=== PATIENT | female | born 2000 | race Caucasian/White ===

== ENCOUNTER 2020-01-18 11:00 | Emergency (ER) | payer OTHER ==
[~2020-01-18] VITALS: Ht 160 cm; Wt 75.9 kg
[2020-01-18 11:44] LABS: BASO % 0.4 % (0.0-1.0); EOS # 0.1 10^3/uL (0.0-0.5); HEMOGLOBIN 12.8 g/dl (12.0-15.5); LYMPH # 1.3 10^3/uL (1.5-5.0); MEAN CORPUSCULAR HEMOGLOBIN 24.5 pg (27.0-33.0); MEAN CORPUSCULAR HGB CONC 31.2 g/dl (32.0-36.5); MEAN CORPUSCULAR VOLUME 78.4 fl (80.0-96.0); MONO # 0.6 10^3/uL (0.0-0.8); NEUTROPHILS % 71.3 % (36.0-66.0); PLATELET COUNT, AUTOMATED 345 10^3/uL (150-450); RED BLOOD COUNT 5.23 10^6/uL (4.00-5.40)
[2020-01-18 12:12] LABS: ALBUMIN 3.9 GM/DL (3.2-5.2); ALT/SGPT 15 U/L (12-78); BILIRUBIN,DIRECT 0.1 MG/DL (0.0-0.2); BILIRUBIN,TOTAL 0.4 MG/DL (0.2-1.0); BLOOD UREA NITROGEN 12 MG/DL (7-18); CALCIUM LEVEL 9.3 MG/DL (8.5-10.1); CARBON DIOXIDE LEVEL 28 MEQ/L (21-32); CHLORIDE LEVEL 104 MEQ/L (98-107); CREATININE FOR GFR 0.62 MG/DL (0.55-1.30); GLUCOSE, FASTING 79 MG/DL (70-100); LIPASE 94 U/L (73-393); POTASSIUM SERUM 4.2 MEQ/L (3.5-5.1); SODIUM LEVEL 137 MEQ/L (136-145); TOTAL PROTEIN 8.2 GM/DL (6.4-8.2)
[2020-01-18 12:21] LABS: BILIRUBIN, URINE MANUAL NEGATIVE (NEGATIVE); GLUCOSE, URINE (UA) MANUAL NEGATIVE (NEGATIVE); KETONE, URINE MANUAL NEGATIVE (NEGATIVE); UROBILINOGEN, URINE MANUAL NORMAL (NORMAL)
--- NOTE | 2020-01-18 12:22 | REPVR ---
PROCEDURE INFORMATION: Exam: US Retroperitoneal Limited, Kidneys Exam date and time: 01/18/2020 12:00 PM Age: 19 years old Clinical indication: Abdominal pain; Flank; Left; Additional info: Bilat CVA tenderness TECHNIQUE: Imaging protocol: Real-time ultrasound of the retroperitoneum with image documentation. Examination was focused on the kidneys. COMPARISON: No relevant prior studies available. FINDINGS: Right kidney: The right kidney measures 12.3 x 4.3 x 5.6 cm. Its collecting system is duplicated. Normal appearing echotexture. There is no hydronephrosis or demonstrated renal stone, cyst or mass. Left kidney: The left kidney measures 10.7 x 5.1 x 5.5 cm. Normal appearing echotexture. There is no hydronephrosis or demonstrated renal stone, cyst or mass. Bladder: The urinary bladder was not distended and appears grossly unremarkable. Ureteral jets were not visualized. IMPRESSION: No significant demonstrated abnormality. Electronically signed by: Ryan Kaufman On 01/18/2020 12:22:50 PM
[2020-01-18 12:23] LABS: SQUAMOUS EPITHELIAL CELL URINE SMALL AMOUNT /hpf (SMALL AMT)
[2020-01-18 12:24] LABS: AMORPHOUS SEDIMENT, URINE SMALL AMOUNT (NEGATIVE); BACTERIA, URINE NONE SEEN; HYALINE CAST, URINE NONE SEEN /lpf (0-1); MUCUS, URINE SMALL AMOUNT (NEGATIVE); RBC, URINE NONE SEEN /hpf (0-3)
[2020-01-18] MEDS ORDERED: KEFL500C17 PO (12:40)
[2020-01-18] MEDS ORDERED: PYRI1TAB5 PO (12:41)
[2020-01-18 12:59] VITALS: BP 153/90
== END 2020-01-18 13:01 | disposition home or self-care (01) ==
LOC: M ED 11:00
DX: N39.0 Urinary tract infection, site not specified (principal); N83.209 Unspecified ovarian cyst, unspecified side; Z79.899 Other long term (current) drug therapy; Z88.8 Allergy status to other drugs, medicaments and biological substances

== ENCOUNTER 2020-06-03 09:10 | Emergency (ER) | payer OTHER ==
[~2020-06-03] VITALS: Ht 165.1 cm; Wt 77.3 kg
[~2020-06-03 09:10] MED LIST: KEFL500C17 PO; PYRI1TAB5 PO
[2020-06-03 09:17] VITALS: BP 194/128
[2020-06-03] MEDS ORDERED: NS 500 ML IV ONE (09:30)
[2020-06-03] MEDS ORDERED: ONDANSETRON 4MG/2ML VIAL IV ONE (09:30)
[2020-06-03] MEDS ORDERED: MORPHINE 4 MG/ML 1ML VIAL/SYRINGE (J2270) IV ONE (09:30)
[2020-06-03 09:55] LABS: BASO % 0.5 % (0.0-1.0); EOS # 0.1 10^3/uL (0.0-0.5); EOS % 1.5 % (0.0-3.0); HEMATOCRIT 39.6 % (36.0-47.0); HEMOGLOBIN 12.1 g/dl (12.0-15.5); LYMPH # 3.3 10^3/uL (1.5-5.0); LYMPH % 41.8 % (24.0-44.0); MEAN CORPUSCULAR HEMOGLOBIN 25.3 pg (27.0-33.0); MEAN CORPUSCULAR HGB CONC 30.6 g/dl (32.0-36.5); MEAN CORPUSCULAR VOLUME 82.8 fl (80.0-96.0); MONO # 0.9 10^3/uL (0.0-0.8); MONO % 11.7 % (0.0-5.0); NEUTROPHILS # 3.5 10^3/uL (1.5-8.5); NEUTROPHILS % 44.2 % (36.0-66.0); PLATELET COUNT, AUTOMATED 385 10^3/uL (150-450); RED BLOOD COUNT 4.78 10^6/uL (4.00-5.40); WHITE BLOOD COUNT 7.8 10^3/uL (4.0-10.0)
[2020-06-03 10:14] LABS: INR 1.01; PARTIAL THROMBOPLASTIN TIME 29.3 SECONDS (24.2-38.5); PROTHROMBIN TIME 13.5 SECONDS (12.5-14.3)
[2020-06-03] MEDS ORDERED: ISOVUE-370 76% 100ML VIAL As Ordered ONE (10:41)
--- NOTE | 2020-06-03 10:42 | REP ---
INDICATION: chest pain, check poc hcg result COMPARISON: None. TECHNIQUE: Portable AP view of the chest FINDINGS: The mediastinum and cardiac silhouette are within normal limits for portable technique. The lung covarrubias are clear without acute consolidation, effusion, or pneumothorax. Skeletal structures are intact. IMPRESSION: No acute cardiopulmonary process appreciated. <Electronically signed by Soren Roque > 06/03/20 [id number]
--- NOTE | 2020-06-03 11:09 | REP ---
INDICATION: rlq pain and right sided chest pain COMPARISON: None. TECHNIQUE: Axial contrast enhanced images from the thoracic inlet to the upper abdomen using pulmonary embolus technique with multiplanar re-formations. 100 ml Isovue 370 intravenous contrast material administered without complication. This CT examination was performed using the following dose reduction techniques: Automated exposure control, adjustment of mA and/or kv according to the patient's size, and use of iterative reconstruction technique. FINDINGS: Satisfactory enhancement of the pulmonary vasculature is achieved and no filling defects are identified to suggest pulmonary embolus. Further evaluation of the mediastinum demonstrates normal thoracic aorta, heart and pericardium. The bilateral lung covarrubias are well aerated and clear without consolidation pleural effusion or pneumothorax. Tracheobronchial tree is patent. No nodule or mass lesion is identified. No adenopathy noted. Surrounding musculoskeletal structures intact IMPRESSION: No evidence for pulmonary embolus. No acute mediastinal or pleural parenchymal process. <Electronically signed by Soren Rouqe > 06/03/20 [id number]
--- NOTE | 2020-06-03 11:15 | REP ---
INDICATION: rlq pain and right sided chest pain. COMPARISON: None TECHNIQUE: Axial contrast-enhanced images from the lung bases to the pubic symphysis using 100 cc Isovue 370 intravenous contrast material. Coronal and sagittal reformations obtained. This CT examination was performed using the following dose reduction techniques: Automated exposure control, adjustment of mA and/or kv according to the patient's size, and the use of iterative reconstruction technique. FINDINGS: Liver demonstrates fatty infiltration without focal hepatic lesion. The spleen, pancreas, gallbladder, left adrenal gland and kidneys are normal. There is a 1.6 cm homogeneously enhancing left adrenal nodule which is otherwise nonspecific. Small hiatal hernia identified at the gastroesophageal junction. There is no evidence for bowel obstruction or obvious acute inflammatory process. Evaluation of the right lower quadrant and right hemipelvis is limited due to paucity of fat and moderate amount of fecal retention. No obvious secondary signs of acute appendicitis are noted. Pelvis demonstrates normal bladder and age-appropriate uterus/adnexa. No pelvic fluid. No ascites. No free air. No intraperitoneal or retroperitoneal adenopathy. Abdominal aorta and vasculature appear normal. Musculoskeletal structures are intact and without acute osseous abnormality. IMPRESSION: 1. 1.6 cm homogeneously enhancing left adrenal nodule. Findings are nonspecific by current examination. No prior examinations are available for comparison. Consider follow-up outpatient pre and postcontrast CT of the abdomen to evaluate for the possibility of atypical adenoma or further pathology. 2. Hepatosteatosis. 3. No further acute abdominopelvic pathology appreciated. No ascites. No focal inflammatory stranding. No adenopathy. <Electronically signed by Soren Roque > 06/03/20 1111
[2020-06-03 11:39] LABS: ALBUMIN 4.1 GM/DL (3.2-5.2); ALT/SGPT 16 U/L (12-78); BILIRUBIN,DIRECT < 0.1 MG/DL (0.0-0.2); BILIRUBIN,TOTAL 0.2 MG/DL (0.2-1.0); CK-MB VALUE MASS < 1.0 NG/ML (<3.6); CPK CREATINE PHOSPHOKINASE 58 U/L (26-192); LIPASE 561 U/L (73-393); MB/CK RELATIVE INDEX 1.72 (< OR =4); TOTAL PROTEIN 7.7 GM/DL (6.4-8.2); TROPONIN I < 0.02 NG/ML (< 0.10)
[2020-06-03 12:08] LABS: BLOOD UREA NITROGEN 11 MG/DL (7-18); CALCIUM LEVEL 8.9 MG/DL (8.5-10.1); CARBON DIOXIDE LEVEL 29 MEQ/L (21-32); CHLORIDE LEVEL 104 MEQ/L (98-107); CREATININE FOR GFR 0.61 MG/DL (0.55-1.30); GLUCOSE, FASTING 89 MG/DL (70-100); POTASSIUM SERUM 4.1 MEQ/L (3.5-5.1); SODIUM LEVEL 140 MEQ/L (136-145)
[2020-06-03 12:37] LABS: CHLAMYDIA DNA AMPLIFICATION POSITIVE (NEGATIVE); GC DNA AMPLIFICATION NEGATIVE (NEGATIVE)
[2020-06-03] MEDS ORDERED: AZITHROMYCIN 250MG TABLET PO ONE (13:00)
[2020-06-03] MEDS ORDERED: ZOFR4TAB16 PO (13:04)
[2020-06-03] MEDS ORDERED: NORC1TAB7 PO (13:07)
--- NOTE | 2020-06-04 08:49 | ECGEPIP ---
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
--- NOTE | 2020-06-05 14:51 | ED PDOC ---
Post-Departure Follow-Up ct abd/p faxed to e clinic for fu Jeanne Hester MD Jun 05, 2020 14:51
== END 2020-06-03 13:30 | disposition home or self-care (01) ==
LOC: M ED 09:10
DX: R10.9 Unspecified abdominal pain (principal); R74.8 Abnormal levels of other serum enzymes; A74.9 Chlamydial infection, unspecified; E27.8 Other specified disorders of adrenal gland; R11.2 Nausea with vomiting, unspecified; K76.0 Fatty (change of) liver, not elsewhere classified; Z88.8 Allergy status to other drugs, medicaments and biological substances; Z79.899 Other long term (current) drug therapy
CPT/HCPCS: 71045; 71275; 74177; 80048; 80076; 81001; 82550; 82553; 83605; 83690; 84484; 84702; 85025; 85610; 85730; 86850; 86900; 86901; 87040; 87077; 87210; 87491; 87591; 93005; 93041; 96361; 96374; 96375; 99284; J2270; J2405; Q9967; U0002

== ENCOUNTER 2020-06-15 08:27 | Emergency (ER) | payer OTHER ==
[~2020-06-15] VITALS: Ht 160 cm; Wt 80.6 kg
[~2020-06-15 08:27] MED LIST changes: +NORC1TAB7 PO; +ZOFR4TAB16 PO
[2020-06-15] MEDS ORDERED: NS 1,000 ML IV ONE (09:15)
[2020-06-15] MEDS ORDERED: METOCLOPRAMIDE INJ 10MG/2ML VIAL (J2765 PER 1) IV ONE (09:15)
[2020-06-15 09:18] LABS: BASO % 0.3 % (0.0-1.0); EOS # 0.1 10^3/uL (0.0-0.5); EOS % 1.6 % (0.0-3.0); HEMATOCRIT 39.9 % (36.0-47.0); HEMOGLOBIN 12.5 g/dl (12.0-15.5); LYMPH # 2.7 10^3/uL (1.5-5.0); LYMPH % 30.6 % (24.0-44.0); MEAN CORPUSCULAR HEMOGLOBIN 25.3 pg (27.0-33.0); MEAN CORPUSCULAR HGB CONC 31.3 g/dl (32.0-36.5); MEAN CORPUSCULAR VOLUME 80.8 fl (80.0-96.0); MONO % 11.7 % (0.0-5.0); NEUTROPHILS # 4.9 10^3/uL (1.5-8.5); NEUTROPHILS % 55.5 % (36.0-66.0); PLATELET COUNT, AUTOMATED 354 10^3/uL (150-450); RED BLOOD COUNT 4.94 10^6/uL (4.00-5.40); WHITE BLOOD COUNT 8.8 10^3/uL (4.0-10.0)
[2020-06-15 09:39] LABS: ALBUMIN 4.1 GM/DL (3.2-5.2); ALT/SGPT 15 U/L (12-78); BILIRUBIN,DIRECT < 0.1 MG/DL (0.0-0.2); BILIRUBIN,TOTAL 0.3 MG/DL (0.2-1.0); BLOOD UREA NITROGEN 13 MG/DL (7-18); CARBON DIOXIDE LEVEL 23 MEQ/L (21-32); CHLORIDE LEVEL 104 MEQ/L (98-107); CREATININE FOR GFR 0.78 MG/DL (0.55-1.30); GLUCOSE, FASTING 99 MG/DL (70-100); HCG, SERUM QUANTITATIVE < 1.0 MIU/ML; LIPASE 151 U/L (73-393); POTASSIUM SERUM 3.9 MEQ/L (3.5-5.1); SODIUM LEVEL 139 MEQ/L (136-145); TOTAL PROTEIN 7.6 GM/DL (6.4-8.2)
[2020-06-15] MEDS ORDERED: KETOROLAC 30 MG/ML 1ML VIAL IV ONE (10:00)
--- NOTE | 2020-06-15 10:30 | REP ---
INDICATION: RLQ pain, r/o ovarian cyst vs torsion. COMPARISON: No prior pelvic ultrasound TECHNIQUE: Transvesical and transvaginal imaging FINDINGS: The uterus measures 6.5 x 3.4 x 4.6 cm. The parenchymal echo pattern is within normal limits. The endometrial echo complex is unremarkable in appearance measuring 8 mm in its greatest thickness. There is no free fluid. The right ovary measures 6.8 by 4.6 x 5.5 cm. Within the right ovary there is a 6.4 x 4.2 x 5 cm sized anechoic structure which exhibits posterior wall enhancement and increased through transmission. There are no septations or papillary projections. Doppler of the right ovary shows an RI of 0.46. The left ovary measures 2.4 x 1.6 x 1.4 cm and is within normal limits. Doppler of the left ovary shows an RI of 0.42. Urinary bladder measures 2 x 6 x 8 cm. IMPRESSION: Simple appearing right ovarian cyst as described above. <Electronically signed by Brandon Ya > 06/15/20 0511
[2020-06-15] MEDS ORDERED: ACETAMINOPHEN 500 MG TAB PO ONE (10:45)
[2020-06-15 11:19] LABS: CHLAMYDIA DNA AMPLIFICATION NEGATIVE (NEGATIVE); GC DNA AMPLIFICATION NEGATIVE (NEGATIVE)
[2020-06-15] MEDS ORDERED: FLAG500T PO (11:27)
[2020-06-15] MEDS ORDERED: IBUP80TA PO (11:46)
[2020-06-15 11:54] VITALS: BP 155/110
== END 2020-06-15 11:57 | disposition home or self-care (01) ==
LOC: M ED 08:27
DX: N83.201 Unspecified ovarian cyst, right side (principal); N76.0 Acute vaginitis; R11.2 Nausea with vomiting, unspecified; F41.9 Anxiety disorder, unspecified; K21.9 Gastro-esophageal reflux disease without esophagitis; Z88.8 Allergy status to other drugs, medicaments and biological substances
CPT/HCPCS: 76830; 76856; 80048; 80076; 81001; 83690; 84702; 85025; 87086; 87210; 87661; 93976; 96361; 96374; 96375; 99284; J1885; J2765

== ENCOUNTER 2020-08-12 10:39 | Emergency (ER) | payer MEDICAID ==
[~2020-08-12] VITALS: Ht 160 cm; Wt 83.2 kg
[~2020-08-12 10:39] MED LIST changes: +FLAG500T PO; +IBUP80TA PO
--- NOTE | 2020-08-12 11:21 | REP ---
INDICATION: r/o cva. COMPARISON: None. TECHNIQUE: Helical scanning is acquired. 5 mm axial images were reformatted. Coronal MPR images were generated. FINDINGS: Bone window settings demonstrate an intact bony calvarium. There is no evidence of skull fracture or incidental bony calvarial lesion. The visualized paranasal sinuses appear clear. No intraorbital abnormality is seen. On soft tissue window setting images; the lateral, third, and fourth ventricles are normal in size and position. Robb-white differentiation pattern is normal above and below the tentorium. There are is no evidence of intracranial hemorrhage. No mass, edema, infarction, or midline shift is seen. No extra-axial fluid collection is appreciated. IMPRESSION: Negative noncontrast head CT. <Electronically signed by Sidney Adam > 08/12/20 [id number]
[2020-08-12] MEDS ORDERED: KETOROLAC 30 MG/ML 1ML VIAL IV ONE (11:30)
[2020-08-12] MEDS ORDERED: METOCLOPRAMIDE INJ 10MG/2ML VIAL (J2765 PER 1) IV ONE (11:45)
[2020-08-12 14:30] VITALS: BP 158/99
[2020-08-12] MEDS ORDERED: IMIT50TA PO (14:46)
== END 2020-08-12 14:59 | disposition home or self-care (01) ==
LOC: M ED 10:39
DX: G43.809 Other migraine, not intractable, without status migrainosus (principal); I10 Essential (primary) hypertension; F17.200 Nicotine dependence, unspecified, uncomplicated; Z88.8 Allergy status to other drugs, medicaments and biological substances
CPT/HCPCS: 70450; 80047; 82077; 84702; 96374; 99284; J1885; J2765

== ENCOUNTER 2020-08-18 19:24 | Emergency (ER) | payer MEDICAID ==
[~2020-08-18] VITALS: Ht 160 cm; Wt 81.8 kg
[~2020-08-18 19:24] MED LIST changes: +IMIT50TA PO
[2020-08-18 20:19] LABS: AMORPHOUS SEDIMENT SMALL (NEGATIVE); APPEARANCE, URINE CLOUDY (CLEAR); BACTERIA, URINE AUTO NEGATIVE (NEGATIVE); BILIRUBIN, URINE AUTO NEGATIVE (NEGATIVE); BLOOD, URINE BLOOD NEGATIVE (NEGATIVE); COLOR, URINE YELLOW (YELLOW); GLUCOSE, URINE (UA) AUTO NEGATIVE (NEGATIVE); KETONE, URINE AUTO NEGATIVE (NEGATIVE); LEUKOCYTE ESTERASE, URINE AUTO NEGATIVE (NEGATIVE); MUCUS, URINE SMALL (NEGATIVE); NITRITE, URINE AUTO NEGATIVE (NEGATIVE); PROTEIN, URINE AUTO 2+ mg/dL (NEGATIVE); RBC, URINE AUTO 0 /HPF (0-3); SPECIFIC GRAVITY URINE AUTO 1.021 (1.002-1.035); SQUAMOUS EPITHELIAL CELL UR AU 1 /HPF (0-6); UROBILINOGEN, URINE AUTO 0.2 mg/dL (0.0-2.0); WBC, URINE AUTO 0 /HPF (0-3)
[2020-08-18] MEDS ORDERED: diphenhydrAMINE 50MG/ML VIAL (J1200) IV STA (20:44)
[2020-08-18] MEDS ORDERED: NS 1,000 ML IV ONE (20:45)
[2020-08-18] MEDS ORDERED: METOCLOPRAMIDE INJ 10MG/2ML VIAL (J2765 PER 1) IV ONE (20:45)
[2020-08-18] MEDS ORDERED: KETOROLAC 30 MG/ML 1ML VIAL IV ONE (20:45)
[2020-08-18 21:18] LABS: BASO % 0.5 % (0.0-1.0); EOS % 0.5 % (0.0-3.0); HEMATOCRIT 40.3 % (36.0-47.0); LYMPH % 26.4 % (24.0-44.0); MEAN CORPUSCULAR HEMOGLOBIN 24.2 pg (27.0-33.0); MEAN CORPUSCULAR HGB CONC 29.8 g/dl (32.0-36.5); MEAN CORPUSCULAR VOLUME 81.3 fl (80.0-96.0); MONO % 13.3 % (2.0-8.0); NEUTROPHILS # 4.5 10^3/uL (1.5-8.5); PLATELET COUNT, AUTOMATED 402 10^3/uL (150-450); RED BLOOD COUNT 4.96 10^6/uL (4.00-5.40); WHITE BLOOD COUNT 7.7 10^3/uL (4.0-10.0)
[2020-08-18 21:35] LABS: AMPHETAMINES LEVEL URINE NEGATIVE (NEGATIVE); BARBITURATES URINE NEGATIVE (NEGATIVE); BENZODIAZEPINES URINE NEGATIVE (NEGATIVE); CANNABINOIDS URINE POSITIVE (NEGATIVE); COCAINE METABOLITE URINE NEGATIVE (NEGATIVE); METHADONE URINE NEGATIVE (NEGATIVE); OPIATES URINE NEGATIVE (NEGATIVE); PHENCYCLIDINE URINE NEGATIVE (NEGATIVE)
[2020-08-18] MEDS ORDERED: MORPHINE 4 MG/ML 1ML VIAL/SYRINGE (J2270) IV ONE (21:50)
--- NOTE | 2020-08-18 23:45 | REPVR ---
PROCEDURE INFORMATION: Exam: US Nonobstetric Pelvis; Complete Exam date and time: 08/18/2020 11:00 PM Age: 20 years old Clinical indication: Pelvic pain; Additional info: Llq abd pain, HX cysts TECHNIQUE: Imaging protocol: Transabdominal pelvic nonobstetric ultrasound. Complete exam. Real time ultrasound with image documentation. COMPARISON: US PELVIC NON-OB COMPLETE 06/15/2020 10:00 AM FINDINGS: Uterus/cervix: The uterus measures 7 cm in length by 3.2 cm in thickness by 4 cm in transverse dimension with severe retroversion. The endometrium appears within the range of normal measuring 6 mm in thickness. Right adnexa: The right ovary measures 3.6 cm in length by 1.7 cm in thickness. Follicular cysts are noted of the right ovary with a dominant follicular cyst measuring 1 cm x 2 cm. The previous very large cyst measuring 7 cm of the right ovary on 06/15/2020 has resolved. There is vascular flow of the right ovary. Left adnexa: The left ovary measures 4.4 cm in length by 3.3 cm in thickness with vascular flow and no evidence of torsion. Intraperitoneal space: No intraperitoneal fluid. Urinary bladder: Normal appearing urinary bladder. IMPRESSION: 1. The uterus is retroverted. 2. There is vascular flow of both ovaries and no evidence of torsion. 3. The very large cyst of the right ovary seen on 06/15/2020 is no longer identified. 4. Follicular cysts of both ovaries. Electronically signed by: Hoemr Naik On 08/18/2020 23:45:26 PM
[2020-08-19 00:40] VITALS: BP 142/81
== END 2020-08-19 00:44 | disposition home or self-care (01) ==
LOC: M ED 19:24
DX: R10.32 Left lower quadrant pain (principal); N83.01 Follicular cyst of right ovary; N83.02 Follicular cyst of left ovary; Z87.42 Personal history of other diseases of the female genital tract; R51.9 Headache, unspecified; R11.0 Nausea; Z88.8 Allergy status to other drugs, medicaments and biological substances; Z79.899 Other long term (current) drug therapy
CPT/HCPCS: 76830; 76856; 80047; 80307; 81001; 82077; 84702; 85025; 93976; 96361; 96374; 96375; 99284; J1200; J1885; J2270; J2765

== ENCOUNTER 2020-08-30 22:28 | Emergency (ER) | payer MEDICAID, OTHER ==
[~2020-08-30] VITALS: Ht 162.6 cm; Wt 82.4 kg
[2020-08-30] MEDS ORDERED: PANTOPRAZOLE 40MG VIAL (C9113 PER 1) IV ONE (22:50)
[2020-08-30] MEDS ORDERED: NS 1,000 ML IV ONE (22:50)
[2020-08-30] MEDS ORDERED: ONDANSETRON 4MG/2ML VIAL IV ONE (22:50)
[2020-08-30] MEDS ORDERED: KETOROLAC 30 MG/ML 1ML VIAL IV ONE (22:50)
[2020-08-30 23:01] LABS: BASO % 0.3 % (0.0-1.0); EOS # 0.1 10^3/uL (0.0-0.5); EOS % 1.2 % (0.0-3.0); HEMATOCRIT 37.3 % (36.0-47.0); HEMOGLOBIN 11.8 g/dl (12.0-15.5); LYMPH # 2.7 10^3/uL (1.5-5.0); LYMPH % 29.2 % (24.0-44.0); MEAN CORPUSCULAR HEMOGLOBIN 24.6 pg (27.0-33.0); MEAN CORPUSCULAR HGB CONC 31.6 g/dl (32.0-36.5); MEAN CORPUSCULAR VOLUME 77.9 fl (80.0-96.0); MONO # 1.3 10^3/uL (0.0-0.8); MONO % 14.1 % (2.0-8.0); NEUTROPHILS % 54.9 % (36.0-66.0); PLATELET COUNT, AUTOMATED 379 10^3/uL (150-450); RED BLOOD COUNT 4.79 10^6/uL (4.00-5.40); WHITE BLOOD COUNT 9.1 10^3/uL (4.0-10.0)
[2020-08-30 23:25] VITALS: BP 194/88
[2020-08-30 23:27] LABS: HCG, SERUM QUALITATIVE NEGATIVE (NEGATIVE)
[2020-08-30 23:29] LABS: ALBUMIN 4.2 GM/DL (3.2-5.2); ALT/SGPT 21 U/L (12-78); BILIRUBIN,DIRECT 0.1 MG/DL (0.0-0.2); BILIRUBIN,TOTAL 0.5 MG/DL (0.2-1.0); BLOOD UREA NITROGEN 12 MG/DL (7-18); CALCIUM LEVEL 9.4 MG/DL (8.5-10.1); CARBON DIOXIDE LEVEL 22 MEQ/L (21-32); CHLORIDE LEVEL 105 MEQ/L (98-107); CREATININE FOR GFR 0.74 MG/DL (0.55-1.30); GLOMERULAR FILTRATION RATE > 60.0 (>60); GLUCOSE, FASTING 82 MG/DL (70-100); LIPASE 413 U/L (73-393); POTASSIUM SERUM 4.2 MEQ/L (3.5-5.1); SODIUM LEVEL 138 MEQ/L (136-145); TOTAL PROTEIN 8.2 GM/DL (6.4-8.2)
--- NOTE | 2020-08-31 00:13 | REPVR ---
PROCEDURE INFORMATION: Exam: CT Abdomen And Pelvis Without Contrast Exam date and time: 08/30/2020 10:47 PM Age: 20 years old Clinical indication: Abdominal pain; Generalized; Additional info: Abd pain TECHNIQUE: Imaging protocol: Computed tomography of the abdomen and pelvis without contrast. Axial, coronal and sagittal reformatted images were created and reviewed. Radiation optimization: All CT scans at this facility use at least one of these dose optimization techniques: automated exposure control; mA and/or kV adjustment per patient size (includes targeted exams where dose is matched to clinical indication); or iterative reconstruction. COMPARISON: CT ABD/PEL W/IV CONTRAST ONLY 06/03/2020 10:48 AM FINDINGS: Mediastinal space: Small hiatal hernia and mild nonspecific distal esophageal wall thickening, suggesting chronic reflux/esophagitis. Liver: Unremarkable. Gallbladder and bile ducts: No radiodense gallstones. No biliary ductal dilatation. Pancreas: Unremarkable. Spleen: Unremarkable. Adrenal glands: Normal. No mass. Kidneys and ureters: No mass. No radiodense calculi. No hydronephrosis. Stomach and bowel: No bowel wall thickening. No obstruction. No pneumatosis. Appendix: Status post appendectomy. Intraperitoneal space: Trace nonspecific free pelvic fluid, likely physiologic. No organized fluid collection. No free air. Vasculature: Unremarkable. No aneurysm. Lymph nodes: No pathologically enlarged lymph nodes. Urinary bladder: Unremarkable as visualized. Reproductive: 3.2 x 2.8 cm left adnexal cystic lesion. Bones/joints: No acute osseous abnormality. Soft tissues: Unremarkable. IMPRESSION: 1. Limited noncontrast examination. 2. 3.2 x 2.8 cm left adnexal cystic lesion. 3. Small hiatal hernia and mild nonspecific distal esophageal wall thickening, suggesting chronic reflux/esophagitis. 4. Additional findings, as above. Electronically signed by: Ryan Amezcua On 08/31/2020 00:13:59 AM
[2020-08-31] MEDS ORDERED: IBUP80TA PO (14:52)
== END 2020-08-30 23:47 | disposition left against medical advice (07) ==
LOC: M ED 22:28
DX: R10.9 Unspecified abdominal pain (principal); K44.9 Diaphragmatic hernia without obstruction or gangrene; F17.200 Nicotine dependence, unspecified, uncomplicated; F12.10 Cannabis abuse, uncomplicated; Z88.8 Allergy status to other drugs, medicaments and biological substances
CPT/HCPCS: 74176; 80048; 80076; 83690; 84703; 85025; 96361; 96374; 99284; C9113; J1885; J2405

== ENCOUNTER 2020-08-31 08:01 | Emergency (ER) | payer MEDICAID, OTHER ==
[2020-08-31] MEDS ORDERED: ALPRAZolam 0.5 MG TAB PO ONE (08:45)
[2020-08-31] MEDS ORDERED: ACETAMINOPHEN 500 MG TAB PO ONE (09:00)
[2020-08-31] MEDS ORDERED: ONDANSETRON 4 MG ORAL DISINTEGRATING TAB PO ONE (09:00)
--- NOTE | 2020-08-31 09:05 | REP ---
INDICATION: chest pain COMPARISON: 06/03/2020. TECHNIQUE: PA/Lateral FINDINGS: Lungs: Clear, no infiltrate. Heart: Normal in size. Mediastinum: Mediastinal silhouette unremarkable. Pleural angles: Unremarkable.. Bones and soft tissues: Unremarkable. IMPRESSION: No acute pulmonary disease. <Electronically signed by Roger Robb > 08/31/20 0902
[2020-08-31] MEDS ORDERED: LORazepam 2 MG/ML VIAL IV STA (09:28)
[2020-08-31] MEDS ORDERED: KETOROLAC 30 MG/ML 1ML VIAL IV ONE (09:30)
[2020-08-31 09:55] LABS: BASO % 0.2 % (0.0-1.0); EOS % 0.5 % (0.0-3.0); HEMATOCRIT 35.8 % (36.0-47.0); HEMOGLOBIN 11.4 g/dl (12.0-15.5); LYMPH % 22.6 % (24.0-44.0); MEAN CORPUSCULAR HEMOGLOBIN 24.5 pg (27.0-33.0); MEAN CORPUSCULAR HGB CONC 31.8 g/dl (32.0-36.5); MEAN CORPUSCULAR VOLUME 76.8 fl (80.0-96.0); MONO % 12.1 % (2.0-8.0); NEUTROPHILS # 5.6 10^3/uL (1.5-8.5); NEUTROPHILS % 64.4 % (36.0-66.0); PLATELET COUNT, AUTOMATED 380 10^3/uL (150-450); RED BLOOD COUNT 4.66 10^6/uL (4.00-5.40); WHITE BLOOD COUNT 8.6 10^3/uL (4.0-10.0)
--- NOTE | 2020-08-31 10:04 | REP ---
INDICATION: right sided pelvic pain. COMPARISON: 07/29/2020. TECHNIQUE: Transabdominal and transvaginal scanning performed. FINDINGS: Uterine dimensions are 5.3 x 2.7 x 4.1 cm. Endometrial echo is 5 mm in AP dimension and centrally placed. The bladder measures 1.6 x 4.1 x 6.3cm. The right ovary could not be visualized. The left ovary dimensions are 3.5 x 3.2 x 2.4 cm. Blood flow is seen in the left ovary with Doppler evaluation, with no torsion. Complex hemorrhagic cyst is seen in the left ovary 2.8 x 2.4 x 1.4 cm. There is trace free fluid in the cul-de-sac. IMPRESSION: Right ovary could not be visualized. No left ovarian torsion. Complex hemorrhagic cyst left ovary 2.8 cm maximally. Trace free fluid in the cul-de-sac. <Electronically signed by Roger Robb > 08/31/20 1000
[2020-08-31 10:30] LABS: CHLAMYDIA DNA AMPLIFICATION NEGATIVE (NEGATIVE); GC DNA AMPLIFICATION NEGATIVE (NEGATIVE)
[2020-08-31 10:40] LABS: AMPHETAMINES LEVEL URINE NEGATIVE (NEGATIVE); BARBITURATES URINE NEGATIVE (NEGATIVE); BENZODIAZEPINES URINE NEGATIVE (NEGATIVE); CANNABINOIDS URINE POSITIVE (NEGATIVE); COCAINE METABOLITE URINE NEGATIVE (NEGATIVE); METHADONE URINE NEGATIVE (NEGATIVE); OPIATES URINE NEGATIVE (NEGATIVE); PHENCYCLIDINE URINE NEGATIVE (NEGATIVE)
[2020-08-31 10:59] LABS: ACETAMINOPHEN LEVEL < 2.0 UG/ML (10.0-30.0); ALBUMIN 4.1 GM/DL (3.2-5.2); ALT/SGPT 22 U/L (12-78); BILIRUBIN,DIRECT < 0.1 MG/DL (0.0-0.2); BILIRUBIN,TOTAL 0.9 MG/DL (0.2-1.0); BLOOD UREA NITROGEN 12 MG/DL (7-18); CARBON DIOXIDE LEVEL 21 MEQ/L (21-32); CHLORIDE LEVEL 106 MEQ/L (98-107); CREATININE FOR GFR 0.78 MG/DL (0.55-1.30); ETHYL ALCOHOL (ETHANOL) < 0.003 % (0.000-0.010); GLOMERULAR FILTRATION RATE > 60.0 (>60); GLUCOSE, FASTING 90 MG/DL (70-100); LIPASE 84 U/L (73-393); POTASSIUM SERUM 5.2 MEQ/L (3.5-5.1); SALICYLATE LEVEL < 1.7 MG/DL (5.0-30.0); SODIUM LEVEL 134 MEQ/L (136-145)
[2020-08-31] MEDS ORDERED: IBUP80TA PO (14:52)
[2020-08-31 15:03] VITALS: BP 180/119
[2020-09-01] MEDS ORDERED: IBUP80TA PO (15:55)
== END 2020-08-31 15:09 | disposition home or self-care (01) ==
LOC: M ED 08:01 → EDBD 08:01 → M ED 15:09
DX: N83.202 Unspecified ovarian cyst, left side (principal); F41.9 Anxiety disorder, unspecified; K21.9 Gastro-esophageal reflux disease without esophagitis; Z79.899 Other long term (current) drug therapy; Z88.8 Allergy status to other drugs, medicaments and biological substances
CPT/HCPCS: 36415; 71046; 76830; 76856; 80048; 80076; 80143; 80307; 81001; 82077; 83690; 84443; 85025; 87210; 87661; 96374; 99285; J1885; J2060; Q0162

== ENCOUNTER 2020-09-01 12:00 | Inpatient (IN) | payer MEDICAID, OTHER ==
[~2020-09-01] VITALS: Ht 160 cm; Wt 85.2 kg
[2020-09-01] MEDS: OLANZapine INTRAMUSCULAR 10MG VIAL IM SCH
[2020-09-01] MEDS ORDERED: MIDAZOLAM 5MG/ML 1ML VIAL (J2250 PER 1MG) IM ONE ×2 (12:05→12:50)
[2020-09-01] MEDS ORDERED: MIDAZOLAM 5MG/ML 1ML VIAL (J2250 PER 1MG) As Ordered ONE (12:07)
[2020-09-01 12:44] LABS: HEMATOCRIT 35.7 % (36.0-47.0); MEAN CORPUSCULAR HEMOGLOBIN 24.1 pg (27.0-33.0); MEAN CORPUSCULAR HGB CONC 30.8 g/dl (32.0-36.5); MEAN CORPUSCULAR VOLUME 78.3 fl (80.0-96.0); PLATELET COUNT, AUTOMATED 337 10^3/uL (150-450); RED BLOOD COUNT 4.56 10^6/uL (4.00-5.40); WHITE BLOOD COUNT 6.1 10^3/uL (4.0-10.0)
[2020-09-01] MEDS ORDERED: diphenhydrAMINE 50MG/ML VIAL (J1200) IM ONE (13:15)
[2020-09-01] MEDS ORDERED: OLANZapine INTRAMUSCULAR 10MG VIAL IM ONE ×2 (13:15→15:05)
[2020-09-01 13:16] LABS: AMPHETAMINES LEVEL URINE NEGATIVE (NEGATIVE); BARBITURATES URINE NEGATIVE (NEGATIVE); BENZODIAZEPINES URINE POSITIVE (NEGATIVE); CANNABINOIDS URINE POSITIVE (NEGATIVE); COCAINE METABOLITE URINE NEGATIVE (NEGATIVE); METHADONE URINE NEGATIVE (NEGATIVE); OPIATES URINE NEGATIVE (NEGATIVE); PHENCYCLIDINE URINE NEGATIVE (NEGATIVE)
[2020-09-01 13:29] LABS: HCG, SERUM QUALITATIVE NEGATIVE (NEGATIVE)
[2020-09-01 13:37] LABS: ACETAMINOPHEN LEVEL < 2.0 UG/ML (10.0-30.0); ALT/SGPT 21 U/L (12-78); BILIRUBIN,DIRECT 0.2 MG/DL (0.0-0.2); BILIRUBIN,TOTAL 0.7 MG/DL (0.2-1.0); BLOOD UREA NITROGEN 12 MG/DL (7-18); CALCIUM LEVEL 9.3 MG/DL (8.5-10.1); CARBON DIOXIDE LEVEL 23 MEQ/L (21-32); CHLORIDE LEVEL 104 MEQ/L (98-107); CREATININE FOR GFR 0.76 MG/DL (0.55-1.30); ETHYL ALCOHOL (ETHANOL) < 0.003 % (0.000-0.010); GLOMERULAR FILTRATION RATE > 60.0 (>60); GLUCOSE, FASTING 108 MG/DL (70-100); LIPASE 297 U/L (73-393); POTASSIUM SERUM 3.4 MEQ/L (3.5-5.1); SALICYLATE LEVEL < 1.7 MG/DL (5.0-30.0); SODIUM LEVEL 138 MEQ/L (136-145); THYROID STIMULATING HORMONE 0.337 uIU/ML (0.358-3.740); TOTAL PROTEIN 7.9 GM/DL (6.4-8.2)
[2020-09-01] MEDS ORDERED: LABETALOL 100MG/20ML VIAL IV STA (14:49)
[2020-09-01 15:07] LABS: CK-MB VALUE MASS < 1.0 NG/ML (<3.6); CPK CREATINE PHOSPHOKINASE 149 U/L (26-192); MB/CK RELATIVE INDEX 0.67 (< OR =4)
[2020-09-01] MEDS ORDERED: ONDANSETRON 4MG/2ML VIAL IV ONE (15:20)
--- NOTE | 2020-09-01 15:29 | REP ---
INDICATION: hypertensive. COMPARISON: 08/31/2020. TECHNIQUE: SINGLE PORTABLE AP VIEW OF THE CHEST WAS PERFORMED. FINDINGS: THERE IS NO ACUTE INFILTRATE OR PULMONARY EDEMA. LUNGS ARE CLEAR. HEART IS NOT SIGNIFICANTLY ENLARGED. MEDIASTINAL SILHOUETTE IS UNREMARKABLE. THE VISUALIZED OSSEOUS STRUCTURES ARE INTACT. IMPRESSION: NO ACUTE PULMONARY DISEASE. <Electronically signed by Roger Robb > 09/01/20 1529
[2020-09-01 15:46] LABS: TROPONIN I < 0.02 NG/ML (< 0.10)
[2020-09-01] MEDS ORDERED: IBUP80TA PO (15:55)
[2020-09-01 16:11] LABS: RSV AMPLIFICATION NEGATIVE (NEGATIVE)
--- NOTE | 2020-09-01 16:25 | ECGEPIP ---
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
--- NOTE | 2020-09-01 16:36 | REP ---
INDICATION: trauma. COMPARISON: 08/12/2020. TECHNIQUE: CT BRAIN PERFORMED IN THE AXIAL PLANE. CORONAL RECONSTRUCTION IMAGES ARE PERFORMED. FINDINGS: THE VENTRICLES ARE NORMAL IN SIZE AND POSITION. THERE IS NO MIDLINE SHIFT OR MASS EFFECT. ROBB-WHITE DIFFERENTIATION IS WELL MAINTAINED. THERE IS NO ACUTE INTRACRANIAL HEMORRHAGE OR EXTRA-AXIAL FLUID COLLECTION. BONE WINDOW EXAMINATION IS UNREMARKABLE. VISUALIZED MASTOID AIR CELLS AND PARANASAL SINUSES ARE CLEAR. IMPRESSION: NEGATIVE NONCONTRAST CT BRAIN. <Electronically signed by Roger Robb > 09/01/20 [id number]
[2020-09-01] MEDS ORDERED: OLANZapine 5 MG TAB PO PRN (17:05)
[2020-09-01] MEDS ORDERED: ACETAMINOPHEN TAB 650MG DOSE (2X325MG) PO PRN (17:05)
[2020-09-01] MEDS: LORazepam 2 MG/ML VIAL IV PRN ×2 (18:45→21:39)
[2020-09-01] MEDS ORDERED: MORPHINE 2 MG/ML 1ML VIAL (J2270) IV PRN (18:55)
[2020-09-01] MEDS: hydrALAZINE 20MG/ML 1ML VIAL (J0360 PER 20MG) IV SCH (20:36)
[2020-09-01] MEDS: diphenhydrAMINE 50MG/ML VIAL (J1200) IV PRN (21:39)
[2020-09-01] MEDS: ONDANSETRON 4MG/2ML VIAL IV PRN (21:47)
[2020-09-01 22:00] VITALS: O2SAT 99
[2020-09-01 22:17] VITALS: BP 160/76
[2020-09-01 23:00] VITALS: O2SAT 97
--- NOTE | 2020-09-01 23:34 | HPEPDOC ---
General Date of Admission Sep 01, 2020 at 12:01 Date of Service: Sep 01, 2020 Chief Complaint The patient is a 20-year-old female admitted with a reason for visit of Abnormal Behavior Hypertensive Urgency. Source: RN/MD History of Present Illness 20 year old female brought in by Benedicto CHAND for suicidal ideation. Patient had called the police for having suicidal ideas. Police found her at the apartment with superficial cuts on her left fore arm . There was a rash on the back of her neck and she was trying to wrap a rope around her neck. Her close friend had overdosed on heroin and today. Patient was brought to the ED. On the way Patient was banging her head in the police van and outside the ED she threw herself into the door of the police van. On being brought into the ED room she threw herself on to the floor banding her head. It took several ED staff and PD officers to get her into the bed. She was banging her her in the bed railings, trying to flip over the bed exhibiting self injurious behavior. She needed 4 point restraints. She was trying to bite the restraints to get them off. She also need chemical restraints. She was given versed and olanzapine and benadryl. She was noted to have healing bruises at sahil back and a large contusion on the center of forehead. At one point she had complained of abdominal pain to the ED physician. This has been an ongoing issue for her . She had several ED visits for this in the last 3 months for this. Imaging was done several times and revealed right ovarian cyst before which has resolved now shows left ovarian cyst and Small hiatal hernia and mild nonspecific distal esophageal wall thickening, suggesting chronic reflux/esophagitis. On my interview patient was deeply sedated and unable to participate in the interview. When i called her name she was able to open her eyes but turned over and immediately fell asleep. During the ED stay her BP was persistently high . even after sedation her bp remained at 170 - 180/ 100 to 115 so the patient was admitted for acute metabolic encephalopathy adn hypertensive urgency. All information in from ED physician and other ED staff. Home Medications Scheduled PRN Ibuprofen (Ibuprofen) 800 Mg Tablet, 800 MG PO Q6H PRN for PAIN, (Reported) Allergies Coded Allergies: haloperidol (Verified Allergy, Intermediate, spacticity, 01/18/20) Past Medical History Medical History psychiatric issues anxiety ovarian cyst Surgical History appendectomy Family History could not obtain Patient sedated Social History * Smoker: current smoker A-FIB/CHADSVASC A-FIB History Current/History of A-Fib/PAF?: No Review of Systems Other systems Unable to get as patient sedated. Physical Examination General Exam: Positive: Other (sedated at 5:30 pm. ) ENT Exam: Positive: Pharynx Normal, Tongue Midline, Nares Patent, Other ENT (la rge contusion in the center of forehead) Neck Exam: Positive: Supple, Other; Negative: JVD, thyromegaly Chest Exam: Positive: Clear to auscultation Heart Exam: Positive: Tachycardic, Regular Rhythm, Normal S1; Negative: Irregular Rhythm, Gallops, Murmurs, Rubs Telemetry: Positive: No significant arrhythmia Abdomen Exam: Positive: Normal bowel sounds, Soft Extremity Exam: Negative: Clubbing, Cyanosis, Edema Skin Exam: Positive: Lesion (superficial cuts on sahil left forearm), Other skin issue (lots to healing bruises on the back mostly right) Neuro Exam: Positive: Other (moving all 4 extremities) Vital Signs Vital Signs Date Time Temp Pulse Resp B/P (MAP) Pulse Ox O2 Delivery O2 Flow Rate FiO2 09/01/20 22:17 160/76 (104) 09/01/20 21:35 98.6 97 18 98 Room Air Laboratory Data Labs 24H Laboratory Tests 2 09/01/20 12:39: Nucleated Red Blood Cells % (auto) 0.0, Anion Gap 11, Glomerular Filtration Rate > 60.0, Calcium Level 9.3, Total Bilirubin 0.7, Direct Bilirubin 0.2, Aspartate Amino Transf (AST/SGOT) 19, Alanine Aminotransferase (ALT/SGPT) 21, Alkaline Phosphatase 52, Total Creatine Kinase 149, Creatine Kinase MB < 1.0, Creatine Kinase MB Relative Index 0.67, Troponin I < 0.02, Total Protein 7.9, Albumin 4.0, Albumin/Globulin Ratio 1.0L, Lipase 297, Thyroid Stimulating Hormone (TSH) 0.337L, Human Chorionic Gonadotropin, Qual NEGATIVE, Salicylates Level < 1.7L, Acetaminophen Level < 2.0L, Ethyl Alcohol Level < 0.003 09/01/20 12:41: Urine Opiates Screen NEGATIVE, Urine Methadone Screen NEGATIVE, Urine Barbiturates Screen NEGATIVE, Urine Phencyclidine Screen NEGATIVE, Urine Amphetamines Screen NEGATIVE, Urine Benzodiazepines Screen POSITIVEH, Urine Cocaine Metabolite Screen NEGATIVE, Urine Cannabinoids Screen POSITIVEH 09/01/20 15:28: Coronavirus (COVID-19)(PCR) NEGATIVE, Influenza Type A (RT-PCR) NEGATIVE, Influenza Type B (RT-PCR) NEGATIVE, Respiratory Syncytial Virus (PCR) NEGATIVE CBC/BMP Laboratory Tests 09/01/20 12:39 Assessment/Plan 20 year old female brought in by Benedicto CHAND for suicidal ideation. Patient had called the police for having suicidal ideas. Police found her at the apartment with superficial cuts on her left fore arm . There was a rash on the back of her neck and she was trying to wrap a rope around her neck. Her close friend had overdosed on heroin and today. Patient was brought to the ED. On the way Patient was banging her head in the police van and outside the ED she threw herself into the door of the police van. On being brought into the ED room she threw herself on to the floor banding her head. It took several ED staff and PD officers to get her into the bed. She was banging her her in the bed railings, trying to flip over the bed exhibiting self injurious behavior. She needed 4 point restraints. She was trying to bite the restraints to get them off. She also need chemical restraints. She was given versed and olanzapine and benadryl. She was noted to have healing bruises at sahil back and a large contusion on the center of forehead. At one point she had complained of abdominal pain to the ED physician. This has been an ongoing issue for her . She had several ED visits for this in the last 3 months for this. Imaging was done several times and r evealed right ovarian cyst before which has resolved now shows left ovarian cyst and Small hiatal hernia and mild nonspecific distal esophageal wall thickening, suggesting chronic reflux/esophagitis. On my interview patient was deeply sedated and unable to participate in the interview. When i called her name she was able to open her eyes but turned over and immediately fell asleep. During the ED stay her BP was persistently high . even after sedation her bp remained at 170 - 180/ 100 to 115 so the patient was admitted for acute metabolic encephalopathy adn hypertensive urgency. Acute metabolic encephalopathy/ self injurious behavior Now sedated after chemical restraints ? primary psychiatric disorder or substance abuse related Uox was positive for marijuana and benzo but patient was in the ED yesterday and had got xanaX. will give ativand an benadryl prn for agitation , aggression continue olalzapine im bid, morphine telemetry, continue pulse oximeter. Sitter. Suicidal ideation/ superficial cuts on left forearm Sitter when Patient calm and cooperative will call psychiatry Abdominal pain and vomiting GERD / esophagitis as per CT abdomen will start pantoprozole and zofran Hypertensive urgency due to abnormal behaviour will give hydralazine IV prn. Plan / VTE VTE Prophylaxis Ordered?: Yes LILLIAM COHEN MD Sep 01, 2020 23:34
[2020-09-02] VITALS (15 sets, daily range): BP systolic 133–177; BP diastolic 68–111; O2SAT 97–99
[2020-09-02] MEDS: PANTOPRAZOLE 40MG VIAL (C9113 PER 1) IV SCH ×3 (01:35→09:05)
[2020-09-02] MEDS: hydrALAZINE 20MG/ML 1ML VIAL (J0360 PER 20MG) IV SCH ×2 (01:52→07:46)
[2020-09-02] MEDS: OLANZapine INTRAMUSCULAR 10MG VIAL IM SCH (09:02)
[2020-09-02] MEDS: ONDANSETRON 4MG/2ML VIAL IV PRN (09:12)
[2020-09-02] MEDS ORDERED: ACETAMINOPHEN 500 MG TAB PO PRN (10:20)
[2020-09-02] MEDS ORDERED: KETOROLAC 30 MG/ML 1ML VIAL IV ONE (10:20)
[2020-09-02] MEDS: diphenhydrAMINE 50MG/ML VIAL (J1200) IV PRN (10:49)
[2020-09-02] MEDS ORDERED: POTASSIUM CHLORIDE 10 MEQ SR TABLET PO ONE (11:40)
--- NOTE | 2020-09-02 11:48 | IPNPDOC ---
Subjective Date Seen The patient was seen on 09/02/20. Subjective Chief Complaint/HPI Patient is awake alert and cooperative this am. Had breakfast. Complains of soreness all over her body. Wants to take a shower. Objective Physical Examination General Exam: Positive: Alert, Cooperative, No Acute Distress Eye Exam: Positive: PERRLA, Conjunctiva & lids normal, EOMI; Negative: Sclera icteric ENT Exam: Positive: Pharynx Normal, Tongue Midline, Nares Patent, Other ENT (large contusion in the center of forehead) Neck Exam: Positive: Supple, Other; Negative: JVD, thyromegaly Chest Exam: Positive: Clear to auscultation Heart Exam: Positive: Tachycardic, Regular Rhythm, Normal S1; Negative: Irregular Rhythm, Gallops, Murmurs, Rubs Telemetry: Positive: No significant arrhythmia Abdomen Exam: Positive: Normal bowel sounds, Soft Extremity Exam: Negative: Clubbing, Cyanosis, Edema Skin Exam: Positive: Lesion (superficial cuts on the left forearm), Other skin issue (lots to bruises on the back, skin of back erythematous ) Neuro Exam: Positive: Normal Speech, Strength at 5/5 X4 ext Psych Exam: Positive: Memory Intact, Oriented x 3 Assessment /Plan Assessment 20 year old female brought in by Benedicto CHAND for suicidal ideation. Patient had called the police for having suicidal ideas. Police found her at the apartment with superficial cuts on her left fore arm . There was a rash on the back of her neck and she was trying to wrap a rope around her neck. Her close friend had overdosed on heroin and recently. SHe was very aggresive and combatitive and was a risk of injury to self so had to be put on physical and chemical restraints. She had hypertensive urgency and was somnolent so could not go to [facility] directly and was admitted to Medicine. She says that she used only marijuana. Denied using any other recreational drugs. Acute metabolic encephalopathy/ self injurious behavior likely due to substance abuse. Unkonwn if she has any primary psychiatric disorder or not. resolved. now awake alert and cooperative. She reports that she only took marijuana. Suicidal ideation/ superficial cuts on left forearm Sitter consulted Dr Chan. patient medically cleared to go to [facility]. Abdominal pain and vomiting GERD / esophagitis as per CT abdomen will start pantoprozole and sucralfate Hypertensive urgency due to abnormal behaviour, combative , fighting. continue hydralazine prn improving. though it still high probably from pain. Has bruises all over her back. Plan/VTE VTE Prophylaxis Ordered?: Yes VS, I&O, 24H, Fishbone Vital Signs/I&O Vital Signs Date Time Temp Pulse Resp B/P (MAP) Pulse Ox O2 Delivery O2 Flow Rate FiO2 09/02/20 10:03 18 Room Air 09/02/20 07:46 158/111 09/02/20 07:38 98.3 89 98 I&O- Last 24 Hours up to 6 AM 09/02/20 06:00 Intake Total 0 ml Output Total 0 ml Balance 0 ml Laboratory Data 24H LABS Laboratory Tests 2 09/01/20 12:39: Nucleated Red Blood Cells % (auto) 0.0, Anion Gap 11, Glomerular Filtration Rate > 60.0, Calcium Level 9.3, Total Bilirubin 0.7, Direct Bilirubin 0.2, Aspartate Amino Transf (AST/SGOT) 19, Alanine Aminotransferase (ALT/SGPT) 21, Alkaline Phosphatase 52, Total Creatine Kinase 149, Creatine Kinase MB < 1.0, Creatine Kinase MB Relative Index 0.67, Troponin I < 0.02, Total Protein 7.9, Albumin 4.0, Albumin/Globulin Ratio 1.0L, Lipase 297, Thyroid Stimulating Hormone (TSH) 0.337L, Human Chorionic Gonadotropin, Qual NEGATIVE, Salicylates Level < 1.7L, Acetaminophen Level < 2.0L, Ethyl Alcohol Level < 0.003 09/01/20 12:41: Urine Opiates Screen NEGATIVE, Urine Methadone Screen NEGATIVE, Urine Barbiturates Screen NEGATIVE, Urine Phencyclidine Screen NEGATIVE, Urine Amphetamines Screen NEGATIVE, Urine Benzodiazepines Screen POSITIVEH, Urine Cocaine Metabolite Screen NEGATIVE, Urine Cannabinoids Screen POSITIVEH 09/01/20 15:28: Coronavirus (COVID-19)(PCR) NEGATIVE, Influenza Type A (RT-PCR) NEGATIVE, Influenza Type B (RT-PCR) NEGATIVE, Respiratory Syncytial Virus (PCR) NEGATIVE CBC/BMP Laboratory Tests 09/01/20 12:39 LILLIAM COHEN MD Sep 02, 2020 11:48
[2020-09-02] MEDS: **hydrALAZINE HCL** 25 MG TAB PO SCH ×2 (11:53→17:14)
[2020-09-02] MEDS: SUCRALFATE SUSP 1GM/10ML UD PO SCH ×2 (11:56→17:12)
[2020-09-02 12:29] LABS: ALBUMIN 4.2 GM/DL (3.2-5.2); ALT/SGPT 20 U/L (12-78); BILIRUBIN,TOTAL 0.7 MG/DL (0.2-1.0); BLOOD UREA NITROGEN 17 MG/DL (7-18); CALCIUM LEVEL 9.6 MG/DL (8.5-10.1); CARBON DIOXIDE LEVEL 25 MEQ/L (21-32); CHLORIDE LEVEL 104 MEQ/L (98-107); CREATININE FOR GFR 0.93 MG/DL (0.55-1.30); GLOMERULAR FILTRATION RATE > 60.0 (>60); GLUCOSE, FASTING 113 MG/DL (70-100); POTASSIUM SERUM 3.7 MEQ/L (3.5-5.1); SODIUM LEVEL 136 MEQ/L (136-145); TOTAL PROTEIN 7.8 GM/DL (6.4-8.2)
[2020-09-02] MEDS: OLANZapine 5 MG TAB PO PRN (13:23)
[2020-09-02] MEDS: LORazepam 2 MG/ML VIAL IV PRN (18:40)
--- NOTE | 2020-09-02 18:52 | MHCRPDOC ---
[facility] Consultation Consultation DATE OF CONSULTATION: 09/02/20 CONSULTATION REQUESTED BY: REASON FOR CONSULTATION: As per ED result: "20 year old female brought in by Benedicto CHAND for suicidal ideation. Patient had called the police for having suicidal ideas. Police found her at the apartment with superficial cuts on her left fore arm . There was a rash on the back of her neck and she was trying to wrap a rope around her neck. Her close friend had overdosed on heroin and today. Patient was brought to the ED. On the way Patient was banging her head in the police van and outside the ED she threw herself into the door of the police van. On being brought into the ED room she threw herself on to the floor banding her head. It took several ED staff and PD officers to get her into the bed. She was banging her her in the bed railings, trying to flip over the bed exhibiting self injurious behavior. She needed 4 point restraints. She was trying to bite the restraints to get them off. She also need chemical restraints. She was given versed and olanzapine and benadryl. She was noted to have healing bruises at sahil back and a large contusion on the center of forehead. At one point she had complained of abdominal pain to the ED physician. This has been an ongoing issue for her . She had several ED visits for this in the last 3 months for this. Imaging was done several times and revealed right ovarian cyst before which has resolved now shows left ovarian cyst and Small hiatal hernia and mild nonspecific distal esophageal wall thickening, suggesting chronic reflux/esophagitis. On my interview patient was deeply sedated and unable to participate in the interview. When i called her name she was able to open her eyes but turned over and immediately fell asleep. During the ED stay her BP was persistently high . even after sedation her bp remained at 170 - 180/ 100 to 115 so the patient was admitted for acute metabolic encephalopathy adn hypertensive urgency. All information in from ED physician and other ED staff." RELEVANT HISTORY: . PAST PSYCHIATRIC HISTORY: Anxiety and depression, she never felt improvement with medications. She took Seroquel, Lexapro, Abilify ( MATT--she received one injection and she never went back for another one). She has attempted suicide, in the past. Brown been admitted to [facility] and somewhere else in [place] PAST MEDICAL HISTORY: FAMILY HISTORY: Mother: Alive, keeps in touch with her Father: Alive Siblings: Estranged from one of her siblings, has a good relationship with he other 2 Children: none PERSONAL AND SOCIAL HISTORY: Resides in: [place] Marital Status: S Single Children: None Employment: Unemployed SUBSTANCE ABUSE HISTORY: Smoking: Yes ETOH: She says she used it occasionally Illicit Drugs: marijuana LEGAL HISTORY: she didn't respond to this question MENTAL STATUS EXAMINATION: Patient is a 20-year old female, who is alert, superficially cooperative, dressed in hospital clothes. Speech is loud, normal rate, circumstantial, spontaneous. Language skills are fair. Thought processes including: linear but not necessarily coherent. Thought content: positive for paranoid thoughts, ideas of reference, catastrophizing. Denies current SI/HI Description of associations: fair. Description of abnormal or psychotic thoughts: paranoid thoughts, depressive and anxious thoughts. Judgment: poor Insight: poor. Orientation to time, person, place and situation Recent and remote memory: fair. Attention span and concentration: fair. Language: adequate. Fund of knowledge: average. Mood: anxious, depressed, irritable. Affect: Congruent with mood. DIAGNOSIS: 1. Unspecified mood disorder 2. R/O Borderline Personality disorder 3. R/O substance induced mood disorder PLAN: 1. Will start Abilify 5 mgs PO BID and Trazodone 50 mgs PO QHS while she is at the [facility]. We have no beds available at this time at [facility], but she will be transferred as soon as they become available. . 2. Transfer to [facility] when beds available 3. Keep her on 1:1 observation Vital Signs Vital Signs Date Time Temp Pulse Resp B/P (MAP) Pulse Ox O2 Delivery O2 Flow Rate FiO2 09/02/20 17:14 172/90 09/02/20 16:13 98.6 98 22 99 Room Air Laboratory Data 24H Labs Laboratory Tests 2 09/02/20 11:12: Anion Gap 7L, Glomerular Filtration Rate > 60.0, Calcium Level 9.6, Total Bilirubin 0.7, Aspartate Amino Transf (AST/SGOT) 23, Alanine Aminotransferase (ALT/SGPT) 20, Alkaline Phosphatase 49, Total Protein 7.8, Albumin 4.2, Albumin/Globulin Ratio 1.2 Home Medications Current Medications Current Medications Medications (Trade) Dose Ordered Sig/Basim Route PRN Reason Start Time Stop Time Status Last Admin Dose Admin Acetaminophen (Tylenol Tab) 650 mg Q4H PRN PO PAIN OR FEVER 09/01/20 17:05 09/02/20 10:21 DC Acetaminophen (Tylenol Tab) 1,000 mg Q6HP PRN PO MILD PAIN 1-4 / FEVER 09/02/20 10:20 Diphenhydramine HCl (Benadryl) 25 mg Q6HP PRN IV agitation 09/01/20 18:50 09/02/20 10:49 Home Med (Med Rec Complete!) ASDIRECTED XX 09/01/20 16:15 09/01/20 16:25 DC Hydralazine HCl (Apresoline) 10 mg Q6H IV 09/01/20 20:00 09/02/20 10:21 DC 09/01/20 20:36 Hydralazine HCl (Apresoline) 25 mg Q6H PO 09/02/20 12:00 09/02/20 17:14 Ibuprofen (Advil) 800 mg Q8HP PRN PO MODERATE/SEVERE PAIN (PS 5-10) 09/02/20 17:00 Labetalol HCl (Normodyne, Trandate) 10 mg STAT STAT IV 09/01/20 14:49 09/01/20 14:50 DC 09/01/20 15:31 Lorazepam (Ativan) 2 mg Q2HP PRN IV AGITATION 09/01/20 17:05 09/01/20 21:39 Morphine Sulfate (Morphine Sulfate Inj) 2 mg Q2H PRN IV SEVERE PAIN (PS 8-10) 09/01/20 18:55 09/02/20 10:21 DC 09/02/20 09:53 Olanzapine (ZyPREXA) 5 mg Q4HP PRN PO AGITATION 09/01/20 17:05 09/01/20 18:51 DC Olanzapine (ZyPREXA) 5 mg Q6HP PRN PO ANXIETY/AGITATION 09/02/20 12:55 09/02/20 13:23 Olanzapine (Zyprexa Intramuscular) 5 mg Q12H IM 09/01/20 22:00 09/02/20 12:53 DC Ondansetron HCl (ZOFRAN INJection) 4 mg Q6HP PRN IV NAUSEA OR VOMITING 09/01/20 17:05 09/02/20 09:12 Pantoprazole Sodium (Protonix) 40 mg BID PO 09/02/20 21:00 Pantoprazole Sodium (Protonix) 40 mg Q12H IV 09/01/20 21:00 09/02/20 11:43 DC 09/02/20 09:05 Sucralfate (Carafate Suspension) 1 gm AC PO 09/02/20 12:00 09/02/20 17:12 Scheduled PRN Ibuprofen (Ibuprofen) 800 Mg Tablet, 800 MG PO Q6H PRN for PAIN, (Reported) Allergies Coded Allergies: haloperidol (Verified Allergy, Intermediate, spacticity, 01/18/20) SELWYN GREEN MD Sep 02, 2020 18:23
[2020-09-02] MEDS: PANTOPRAZOLE 40MG TAB (PROTONIX) PO SCH (20:09)
[2020-09-02] MEDS: IBUPROFEN 800 MG TAB PO PRN (20:10)
[2020-09-02] MEDS ORDERED: traZODone 25MG PER 1/2 TABLET PO ONE (21:00)
[2020-09-03] VITALS (11 sets, daily range): BP systolic 130–176; BP diastolic 90–124
[2020-09-03] MEDS: IBUPROFEN 800 MG TAB PO PRN (04:34)
[2020-09-03] MEDS: LORazepam 2 MG/ML VIAL IV PRN ×5 (04:44→20:34)
[2020-09-03] MEDS: **hydrALAZINE HCL** 25 MG TAB PO SCH ×2 (06:00)
[2020-09-03 06:19] LABS: FREE T4 1.08 NG/DL (0.76-1.46); THYROID STIMULATING HORMONE 0.408 uIU/ML (0.358-3.740)
[2020-09-03] MEDS ORDERED: **hydrALAZINE HCL** 25 MG TAB PO ONE (08:05)
[2020-09-03] MEDS: PANTOPRAZOLE 40MG TAB (PROTONIX) PO SCH ×2 (08:15→21:00)
[2020-09-03] MEDS: SUCRALFATE SUSP 1GM/10ML UD PO SCH ×3 (08:15→17:30)
[2020-09-03] MEDS ORDERED: **hydrALAZINE HCL** 25 MG TAB PO PRN (10:30)
[2020-09-03] MEDS: hydroCHLOROthiazide 12.5 MG CAPSULE PO SCH (10:42)
[2020-09-03] MEDS: amLODIPine 5 MG TAB PO SCH (10:43)
[2020-09-03] MEDS: ONDANSETRON 4MG/2ML VIAL IV PRN (11:51)
[2020-09-03] MEDS ORDERED: hydrALAZINE 20MG/ML 1ML VIAL (J0360 PER 20MG) IV STA (13:52)
[2020-09-03] MEDS: diphenhydrAMINE 50MG/ML VIAL (J1200) IV PRN (17:21)
[2020-09-03] MEDS ORDERED: LABETALOL 100MG/20ML VIAL IV STA (17:26)
[2020-09-03] MEDS: LORazepam 2 MG TAB PO SCH (17:47)
[2020-09-03] MEDS ORDERED: CAPTOpril 6.25 MG PER 1/2 TABLET PO PRN (20:20)
[2020-09-03] MEDS ORDERED: traZODone 50 MG TAB PO SCH (21:00)
[2020-09-03] MEDS ORDERED: ONDANSETRON 4MG/2ML VIAL IV PRN (21:00)
--- NOTE | 2020-09-03 21:04 | IPNPDOC ---
Text Note Date of Service The patient was seen on 09/03/20. NOTE Per d/w the patient's RN the pt was c/o nausea. EKG done on the showed QTc of 456 #Nausea #Prolonged QTc Will order OTD Zofran & repeat EKG tomorrow morning. VS,Fishbone, I+O VS, Fishbone, I+O Vital Signs Date Time Temp Pulse Resp B/P (MAP) Pulse Ox O2 Delivery O2 Flow Rate FiO2 09/03/20 20:00 98.3 111 22 130/90 (103) 98 Room Air I&O- Last 24 Hours up to 6 AM 09/03/20 06:00 Intake Total 4330 ml Output Total 600 ml Balance 3730 ml CHARISSA SCHULTZ MD Sep 03, 2020 21:04
[2020-09-03] MEDS: ONDANSETRON 4 MG ORAL DISINTEGRATING TAB PO PRN (21:44)
[2020-09-04] VITALS: BP 140/62
[2020-09-04 04:00] VITALS: BP 120/65
[2020-09-04] MEDS: LORazepam 2 MG TAB PO SCH ×5 (06:00→23:35)
[2020-09-04] MEDS: LORazepam 2 MG/ML VIAL IV PRN ×4 (06:06→22:21)
[2020-09-04] MEDS: diphenhydrAMINE 50MG/ML VIAL (J1200) IV PRN ×4 (06:26→21:11)
[2020-09-04] MEDS ORDERED: diphenhydrAMINE 50MG/ML VIAL (J1200) IV ONE (06:50)
[2020-09-04 07:43] VITALS: BP 143/72
[2020-09-04] MEDS: PANTOPRAZOLE 40MG TAB (PROTONIX) PO SCH ×2 (08:20→21:11)
[2020-09-04] MEDS: SUCRALFATE SUSP 1GM/10ML UD PO SCH ×3 (08:20→17:31)
[2020-09-04] MEDS: amLODIPine 5 MG TAB PO SCH (08:21)
[2020-09-04] MEDS: hydroCHLOROthiazide 12.5 MG CAPSULE PO SCH (08:21)
[2020-09-04 08:25] LABS: BASO % 0.4 % (0.0-1.0); EOS # 0.1 10^3/uL (0.0-0.5); EOS % 1.6 % (0.0-3.0); HEMATOCRIT 38.4 % (36.0-47.0); HEMOGLOBIN 11.8 g/dl (12.0-15.5); LYMPH # 1.3 10^3/uL (1.5-5.0); MEAN CORPUSCULAR HEMOGLOBIN 24.3 pg (27.0-33.0); MEAN CORPUSCULAR HGB CONC 30.7 g/dl (32.0-36.5); MONO # 0.7 10^3/uL (0.0-0.8); MONO % 9.4 % (2.0-8.0); NEUTROPHILS # 4.8 10^3/uL (1.5-8.5); NEUTROPHILS % 69.3 % (36.0-66.0); RED BLOOD COUNT 4.86 10^6/uL (4.00-5.40); WHITE BLOOD COUNT 6.9 10^3/uL (4.0-10.0)
[2020-09-04 08:53] LABS: ALT/SGPT 21 U/L (12-78); BILIRUBIN,TOTAL 0.6 MG/DL (0.2-1.0); BLOOD UREA NITROGEN 10 MG/DL (7-18); CALCIUM LEVEL 8.9 MG/DL (8.5-10.1); CARBON DIOXIDE LEVEL 21 MEQ/L (21-32); CHLORIDE LEVEL 102 MEQ/L (98-107); CREATININE FOR GFR 0.86 MG/DL (0.55-1.30); GLOMERULAR FILTRATION RATE > 60.0 (>60); GLUCOSE, FASTING 127 MG/DL (70-100); POTASSIUM SERUM 3.1 MEQ/L (3.5-5.1); SODIUM LEVEL 134 MEQ/L (136-145); TOTAL PROTEIN 7.8 GM/DL (6.4-8.2)
[2020-09-04] MEDS ORDERED: NS 1,000 ML IV ONE ×2 (08:55→16:05)
[2020-09-04] MEDS ORDERED: SLF 3 ML SYR IV PRN (09:45)
[2020-09-04] MEDS ORDERED: POTASSIUM CHLORIDE 10 MEQ SR TABLET PO ONE ×2 (10:25→12:00)
[2020-09-04] MEDS: SLF 3 ML SYR IV SCH ×2 (12:48→21:11)
[2020-09-04] MEDS ORDERED: ISOVUE-370 76% 100ML VIAL As Ordered ONE (14:52)
--- NOTE | 2020-09-04 15:35 | REP ---
INDICATION: 03/02 PAIN R/O DISSECTION. COMPARISON: 06/03/2020 the latest prior TECHNIQUE: CT angiography after the intravenous administration of 100 cc Isovue 370. FINDINGS: There is excellent visualization of the pulmonary arterial vasculature. No focal filling defects are seen that would be considered consistent with acute pulmonary emboli. The thoracic aorta is within normal limits. There is no mediastinal or hilar adenopathy. There is a small amount of soft tissue density seen filling the anterior junction line status quo. This is consistent with a minimal amount of residual thymic tissue. There are no pleural or pericardial effusions. The imaged upper abdomen and imaged osseous structures are within normal limits. Evaluation of the lung covarrubias shows them to be clear. Respiratory motion artifact is seen at the lung bases. IMPRESSION: There is no acute disease. <Electronically signed by Brandon Ya > 09/04/20 [id number]
--- NOTE | 2020-09-04 15:41 | REP ---
INDICATION: 03/02 PAIN. COMPARISON: 08/30/2020 the latest prior examination, a noncontrast enhanced examination TECHNIQUE: Standard helical technique after the administration of 100 cc Isovue 370. No significant oral bowel preparatory contrast was administered prior to the exam. FINDINGS: There is respiratory motion artifact obscuring the detail throughout the abdomen. Limited evaluation of the solid intra-abdominal organs and gallbladder show no abnormalities. Limited evaluation of the pancreas, adrenal glands, and kidneys show no abnormalities. Limited evaluation of the abdominal aorta and para-aortic regions show no abnormalities. There is no evidence of free fluid or free air, however, motion artifact in the upper abdomen does obscure the detail.There is no evidence of a mass or adenopathy. Bone window technique throughout the examination shows the osseous structures to be within normal limits. IMPRESSION: There is no evidence of acute disease. Exam limitations as described above. <Electronically signed by Brandon Ya > 09/04/20 [id number]
--- NOTE | 2020-09-04 16:13 | IPNPDOC ---
Date Seen The patient was seen on 09/03/20. Progress Note SUBJECTIVE: Patient is a -year-old [RACE] [GENDER] with OBJECTIVE PHYSICAL EXAMINATION: VITAL SIGNS: Please see below. GENERAL: HEENT: CARDIOVASCULAR: . RESPIRATORY: . ABDOMINAL: EXTREMITIES: NEUROLOGICAL: PSYCHOLOGICAL: LABORATORY DATA, IMAGING STUDIES, MICROBIOLOGY: Please see below. Echocardiogram: . DVT prophylaxis ordered?: ASSESSMENT AND PLAN: This is a -year-old [RACE] [GENDER] with . PROBLEMS: 1. : . 2. : . 3. : . DISPOSITION: . VS, I&O, 24H, Fishbone Vital Signs/I&O Vital Signs Date Time Temp Pulse Resp B/P (MAP) Pulse Ox O2 Delivery O2 Flow Rate FiO2 09/04/20 12:53 180/98 09/04/20 12:00 97.9 111 20 100 Room Air I&O- Last 24 Hours up to 6 AM 09/04/20 06:00 Intake Total 0 ml Output Total 400 ml Balance -400 ml Laboratory Data 24H LABS Laboratory Tests 2 09/04/20 07:59: Immature Granulocyte % (Auto) 0.3, Neutrophils (%) (Auto) 69.3H, Lymphocytes (%) (Auto) 19.0L, Monocytes (%) (Auto) 9.4H, Eosinophils (%) (Auto) 1.6, Basophils (%) (Auto) 0.4, Neutrophils # (Auto) 4.8, Lymphocytes # (Auto) 1.3L, Monocytes # (Auto) 0.7, Eosinophils # (Auto) 0.1, Basophils # (Auto) 0.0, Nucleated Red Bloo d Cells % (auto) 0.0, Anion Gap 11, Glomerular Filtration Rate > 60.0, Lactic Acid Level 3.7*H, Calcium Level 8.9, Magnesium Level 2.0, Total Bilirubin 0.6, Aspartate Amino Transf (AST/SGOT) 19, Alanine Aminotransferase (ALT/SGPT) 21, Alkaline Phosphatase 49, Total Protein 7.8, Albumin 4.0, Albumin/Globulin Ratio 1.1L 09/04/20 10:59: Lactic Acid Level 2.4*H 09/04/20 14:15: Lactic Acid Followup at 4 Hours 3.2*H CBC/BMP Laboratory Tests 09/04/20 07:59 JESSICA RUDOLPH MD Sep 04, 2020 16:13
--- NOTE | 2020-09-04 16:16 | IPNPDOC ---
Date Seen The patient was seen on 09/04/20. Progress Note SUBJECTIVE: patient was seen and examined at bedside. She appears more appropriate today, and more collected. She continues to fidget in bed. She states that her abdominal pain and chest pain have resolved. She denies shortness of breath, headache, dysuria, limb pain. OBJECTIVE PHYSICAL EXAMINATION: VITAL SIGNS: Please see below. GENERAL: restless in bed, appears uncomfortable HEENT: PERRLA, EOMI CARDIOVASCULAR: RRR, normal S1, S2 RESPIRATORY: CTAB ABDOMINAL: soft, non tender, non distended EXTREMITIES: no edema NEUROLOGICAL: no focal deficits LABORATORY DATA, IMAGING STUDIES, MICROBIOLOGY: Please see below. CTA chest (09/04/20): There is excellent visualization of the pulmonary arterial vasculature. No focal filling defects are seen that would be considered consistent with acute pulmonary emboli. The thoracic aorta is within normal limits. There is no mediastinal or hilar adenopathy. There is a small amount of soft tissue density seen filling the anterior junction line status quo. This is consistent with a minimal amount of residual thymic tissue. There are no pleural or pericardial effusions. The imaged upper abdomen and imaged osseous structures are within normal limits. Evaluation of the lung covarrubias shows them to be clear. Respiratory motion artifact is seen at the lung bases. IMPRESSION: There is no acute disease CT abdo pelvis with IV contrast (09/04/20): Limited evaluation of the solid intra-abdominal organs and gallbladder show no abnormalities. Limited evaluation of the pancreas, adrenal glands, and kidneys show no abnormalities. Limited evaluation of the abdominal aorta and para-aortic regions show no abnormalities. There is no evidence of free fluid or free air, however, motion artifact in the upper abdomen does obscure the detail.There is no evidence of a mass or adenopathy. Bone window technique throughout the examination shows the osseous structures to be within normal limits. IMPRESSION: There is no evidence of acute disease. Exam limitations as described above. DVT prophylaxis ordered?: TEDs. [place] ASSESSMENT AND PLAN: 20 year old female brought in by Benedicto CHAND for suicidal ideation. Patient had called the police for having suicidal ideas. Police found her at the apartment with superficial cuts on her left fore arm . There was a rash on the back of her neck and she was trying to wrap a rope around her neck. Her close friend had overdosed on heroin and today. Patient was brought to the ED. On the way Patient was banging her head in the police van and outside the ED she threw hers elf into the door of the police van. On being brought into the ED room she threw herself on to the floor banding her head. It took several ED staff and PD officers to get her into the bed. She was banging her her in the bed railings, trying to flip over the bed exhibiting self injurious behavior. She needed 4 point restraints. She was trying to bite the restraints to get them off. She also need chemical restraints. She was given versed and olanzapine and benadryl. She was noted to have healing bruises at sahil back and a large contusion on the center of forehead. At one point she had complained of abdominal pain to the ED physician. This has been an ongoing issue for her . She had several ED visits for this in the last 3 months for this. Imaging was done several times and revealed right ovarian cyst before which has resolved now shows left ovarian cyst and Small hiatal hernia and mild nonspecific distal esophageal wall thickening, suggesting chronic reflux/esophagitis. On my interview patient was deeply sedated and unable to participate in the interview. When i called her name she was able to open her eyes but turned over and immediately fell asleep. During the ED stay her BP was persistently high . even after sedation her bp remained at 170 - 180/ 100 to 115 so the patient was admitted for acute metabolic encephalopathy adn hypertensive urgency. Acute metabolic encephalopathy/ self injurious behavior Now sedated after chemical restraints - primary psychiatric disorder or substance abuse related, possibly bipolar disored Uox was positive for marijuana and benzo but patient was in the ED yesterday and had got xanaX. - d/w Dr. Chan, stopped antipsychotics, c/w benzo only - suspicion for serotonin syndrome given tachycardia, hypertensive urgency, akathisia. Lactic acidosis - s/p 2L NS bolus, persists - running IVF - CT abdo not showing evidence of bowel ischemia Suicidal ideation/ superficial cuts on left forearm - sitter at bedside - psychiatry eval ongoing, recommending inpatient psychiatric admission - once medically cleared, paln for transfer to [facility] Abdominal pain and vomiting - GERD / esophagitis - c/w start pantoprozole and zofran - due to severe abdominal pain, CT abdo pelvis with IV contrast was ordered on 09/03/20, patient declined - CT abdo pelvis w IV contrast completed on 09/04/20, showed no acute abnormalities, however artifact noted Hypertensive urgency - likely due to behaviours - started on amlodipine, HCTZ - refractory to hydralazine, captopril - check renal US with dopplers - check serum catecholamines, metanephrines and urine VMA Dispo: plan for transfer to [facility] once medically clear VS, I&O, 24H, Fishbone Vital Signs/I&O Vital Signs Date Time Temp Pulse Resp B/P (MAP) Pulse Ox O2 Delivery O2 Flow Rate FiO2 09/04/20 12:53 180/98 09/04/20 12:00 97.9 111 20 100 Room Air I&O- Last 24 Hours up to 6 AM 09/04/20 06:00 Intake Total 0 ml Output Total 400 ml Balance -400 ml Laboratory Data 24H LABS Laboratory Tests 2 09/04/20 07:59: Immature Granulocyte % (Auto) 0.3, Neutrophils (%) (Auto) 69.3H, Lymphocytes (%) (Auto) 19.0L, Monocytes (%) (Auto) 9.4H, Eosinophils (%) (Auto) 1.6, Basophils (%) (Auto) 0.4, Neutrophils # (Auto) 4.8, Lymphocytes # (Auto) 1.3L, Monocytes # (Auto) 0.7, Eosinophils # (Auto) 0.1, Basophils # (Auto) 0.0, Nucleated Red Blood Cells % (auto) 0.0, Anion Gap 11, Glomerular Filtration Rate > 60.0, Lactic Acid Level 3.7*H, Calcium Level 8.9, Magnesium Level 2.0, Total Bilirubin 0.6, Aspartate Amino Transf (AST/SGOT) 19, Alanine Aminotransferase (ALT/SGPT) 21, Alkaline Phosphatase 49, Total Protein 7.8, Albumin 4.0, Albumin/Globulin Ratio 1.1L 09/04/20 10:59: Lactic Acid Level 2.4*H 09/04/20 14:15: Lactic Acid Followup at 4 Hours 3.2*H CBC/BMP Laboratory Tests 09/04/20 07:59 JESSICA RUDOLPH MD Sep 04, 2020 16:16
--- NOTE | 2020-09-04 16:20 | MHCR ---
CONSULTATION DATE: 09/04/2020 SUBJECTIVE: This is a follow up of consultation. Initially the patient was seen by Dr. Chan and the recommendation is once medically cleared she could be transferred to [facility]. HISTORY OF PRESENT ILLNESS: The staff was consulted. I spoke to Dr. Chan. The patient was evaluated. The patient is very labile. She denies any suicidal ideas or thoughts at the time of admission, contrary to the E.D. report which states that the patient attempted suicide tying a rope around her neck. The patient reports she had severe pain in the abdomen and that was the reason she came to the hospital. She reports that the pain does not go away. The patient had several psychiatric hospitalizations, the recent one being at [facility] in [place]. She was on Hydroxyzine, Thorazine and Trazodone. She has been noncompliant with her medications. Currently lives with her boyfriend. The patient has a history of suicide attempt in the past. She had several raya on her forearm. Two weeks ago she cut herself. She has been diagnosed with borderline personality disorder. On the Unit she shows agitation and throws temper tantrums. She had to be medicated several times. She is due for a CAT scan. MENTAL STATUS EXAMINATION: Dressed in a hospital gown. Shows some agitation on the Unit. Her mood is depressed. Affect is labile, tearful. Thought process linear, goal directed. Thought contents denied any suicidal or homicidal ideas. Perception denied any hallucinations. Her insight and judgment are limited. Memory immediate, remote and recent are good. Attention is good. DIAGNOSIS: 1. Mood disorder, unspecified. 2. Rule out borderline personality disorder. 3. Rule out substance induced mood disorder. ASSESSMENT: At the time of her admission she was positive for cannabis and benzodiazepines in the toxicology report. PLAN: This patient shows a lot of agitation, labile affect, and the history of possible suicidal attempt and previous psychiatric history and also previous history of suicidal attempts. I would like to transfer her to [facility] for further treatment once she is medically cleared. The patient reports she was on Thorazine 50 mg at night which can be given when she is on the unit. Continue one to one observation. MTDD
[2020-09-04 20:03] LABS: BLOOD UREA NITROGEN 7 MG/DL (7-18); CARBON DIOXIDE LEVEL 22 MEQ/L (21-32); CHLORIDE LEVEL 104 MEQ/L (98-107); CPK CREATINE PHOSPHOKINASE 304 U/L (26-192); CREATININE FOR GFR 0.61 MG/DL (0.55-1.30); GLOMERULAR FILTRATION RATE > 60.0 (>60); GLUCOSE, FASTING 101 MG/DL (70-100); SODIUM LEVEL 136 MEQ/L (136-145); TROPONIN I < 0.02 NG/ML (< 0.10)
[2020-09-04 21:00] VITALS: BP 135/85
[2020-09-04] MEDS: NS 0.45% 1,000 ML IV SCH (21:36)
[2020-09-04] MEDS: ONDANSETRON 4 MG ORAL DISINTEGRATING TAB PO PRN (21:45)
[2020-09-05] VITALS: BP 128/73
--- NOTE | 2020-09-05 00:05 | ECGEPIP ---
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
[2020-09-05 05:00] VITALS: BP 136/89
[2020-09-05] MEDS: LORazepam 2 MG TAB PO SCH ×3 (05:54→16:26)
[2020-09-05] MEDS: SLF 3 ML SYR IV SCH ×2 (06:00→11:48)
[2020-09-05] MEDS: NS 0.45% 1,000 ML IV SCH ×2 (07:00→11:44)
[2020-09-05 08:00] VITALS: BP 156/100
--- NOTE | 2020-09-05 08:22 | REP ---
INDICATION: hypertensive urgency. COMPARISON: Comparison is made with CT study abdomen and pelvis September 04, 2020.. TECHNIQUE: Urinary tract sonography with renal artery Doppler interrogation study. FINDINGS: Scanning at the level of the urinary bladder demonstrates that it is empty at the time of scanning. Scan quality is inhibited by patient's inability to breath hold and cooperate with positioning. The renal artery Doppler study could not be accomplished due to these factors. If this can be successfully mitigated, Doppler exam could be re-attempted at a later date.. Renal cortical echogenicity pattern is normal bilaterally and contours are smooth. There is no evidence of hydronephrosis, cyst, mass, or calculus in either kidney. The right kidney measures 11.4 x 5.2 x 4.6 cm. Left renal dimensions are 10.4 x 5.9 x 4.9 cm. IMPRESSION: Normal urinary tract sonography. No morphologic abnormality noted. Exam quality is substantially inhibited by patient's inability to fully cooperate. The Doppler study could not be accomplished as result of this. <Electronically signed by Sidney Adam > 09/05/20 [id number]
[2020-09-05] MEDS: OLANZapine 5 MG TAB PO PRN (08:48)
[2020-09-05] MEDS: ONDANSETRON 4 MG ORAL DISINTEGRATING TAB PO PRN (08:48)
[2020-09-05] MEDS: SUCRALFATE SUSP 1GM/10ML UD PO SCH ×2 (08:49→11:48)
[2020-09-05 08:50] VITALS: BP 156/100
[2020-09-05] MEDS: amLODIPine 5 MG TAB PO SCH (08:50)
[2020-09-05] MEDS: PANTOPRAZOLE 40MG TAB (PROTONIX) PO SCH (08:50)
[2020-09-05] MEDS: hydroCHLOROthiazide 12.5 MG CAPSULE PO SCH (08:50)
[2020-09-05] MEDS: ENOXAPARIN 40MG/0.4ML SYRINGE (J1650 PER 10MG) SC SCH ×2 (08:51→08:54)
[2020-09-05 09:21] LABS: BASO % 0.4 % (0.0-1.0); EOS # 0.2 10^3/uL (0.0-0.5); EOS % 2.3 % (0.0-3.0); HEMATOCRIT 39.6 % (36.0-47.0); HEMOGLOBIN 12.1 g/dl (12.0-15.5); LYMPH # 2.4 10^3/uL (1.5-5.0); LYMPH % 28.9 % (24.0-44.0); MEAN CORPUSCULAR HEMOGLOBIN 24.5 pg (27.0-33.0); MEAN CORPUSCULAR HGB CONC 30.6 g/dl (32.0-36.5); MEAN CORPUSCULAR VOLUME 80.3 fl (80.0-96.0); MONO # 0.9 10^3/uL (0.0-0.8); MONO % 11.3 % (2.0-8.0); NEUTROPHILS # 4.7 10^3/uL (1.5-8.5); NEUTROPHILS % 56.6 % (36.0-66.0); PLATELET COUNT, AUTOMATED 336 10^3/uL (150-450); RED BLOOD COUNT 4.93 10^6/uL (4.00-5.40); WHITE BLOOD COUNT 8.4 10^3/uL (4.0-10.0)
[2020-09-05 09:49] LABS: ALBUMIN 3.8 GM/DL (3.2-5.2); ALT/SGPT 16 U/L (12-78); BILIRUBIN,TOTAL 0.5 MG/DL (0.2-1.0); BLOOD UREA NITROGEN 5 MG/DL (7-18); CALCIUM LEVEL 9.2 MG/DL (8.5-10.1); CARBON DIOXIDE LEVEL 25 MEQ/L (21-32); CHLORIDE LEVEL 103 MEQ/L (98-107); CPK CREATINE PHOSPHOKINASE 197 U/L (26-192); GLOMERULAR FILTRATION RATE > 60.0 (>60); GLUCOSE, FASTING 88 MG/DL (70-100); MAGNESIUM LEVEL 2.1 MG/DL (1.8-2.4); SODIUM LEVEL 136 MEQ/L (136-145)
--- NOTE | 2020-09-05 11:00 | DS.PDOC ---
Discharge Summary General Date of Admission Sep 03, 2020 at 16:18 Date of Discharge 09/05/20 Discharge Summary PROCEDURES PERFORMED DURING STAY: [None]. ADMITTING DIAGNOSES: Acute metabolic encephalopathy/self injurious behaviour Suicidal ideation/superificial cuts on arm Abdominal pain and vomiting Hypertensive urgency DISCHARGE DIAGNOSES: Acute metabolic encephalopathy/self injurious behaviour Suicidal ideation/superificial cuts on arm Abdominal pain and vomiting Hypertensive urgency COMPLICATIONS/CHIEF COMPLAINT: Abnormal Behavior Hypertensive Urgency. HISTORY OF PRESENT ILLNESS:20 year old female brought in by [place] [employer] for suicidal ideation. Patient had called the police for having suicidal ideas. Police found her at the apartment with superficial cuts on her left fore arm . There was a rash on the back of her neck and she was trying to wrap a rope around her neck. Her close friend had overdosed on heroin and today. Patient was brought to the ED. On the way Patient was banging her head in the police van and outside the ED she threw herself into the door of the police van. On being brought into the ED room she threw herself on to the floor banding her head. It took several ED staff and PD officers to get her into the bed. She was banging her her in the bed railings, trying to flip over the bed exhibiting self injurious behavior. She needed 4 point restraints. She was trying to bite the restraints to get them off. She also need chemical restraints. She was given versed and olanzapine and benadryl. She was noted to have healing bruises at sahil back and a large contusion on the center of forehead. At one point she had complained of abdominal pain to the ED physician. This has been an ongoing issue for her . She had several ED visits for this in the last 3 months for this. Imaging was done several times and revealed right ovarian cyst before which has resolved now shows left ovarian cyst and Small hiatal hernia and mild nonspecific distal esophageal wall thickening, suggesting chronic reflux/esophagitis. On my interview patient was deeply sedated and unable to participate in the interview. When i called her name she was able to open her eyes but turned over and immediately fell asleep. During the ED stay her BP was persistently high . even after sedation her bp remained at 170 - 180/ 100 to 115 so the patient was admitted for acute metabolic encephalopathy adn hypertensive urgency. All information in from ED physician and other ED staff. HOSPITAL COURSE: Acute metabolic encephalopathy/ self injurious behavior Now sedated after chemical restraints - primary psychiatric disorder or substance abuse related, possibly bipolar disored Uox was positive for marijuana and benzo, but patient was seen in ER the day prior, was given Xanax. - d/w Dr. Chan, stopped antipsychotics, c/w benzo only - suspicion for serotonin syndrome given tachycardia, hypertensive urgency, akathisia. - symptoms mostly resolved, apart from agitation - d/w Dr. Urena, recommendign admission to [facility] for further therapy Lactic acidosis - s/p 2L NS bolus, persists - running IVF - CT abdo not showing evidence of bowel ischemia - d/w Dr. Nelson, isolated lactic acidosis, no concern for insidious process - patient blood cultures pending - no fevers, no leukocytosis Suicidal ideation/ superficial cuts on left forearm - sitter at bedside - psychiatry eval ongoing, recommending inpatient psychiatric admission - once medically cleared, paln for transfer to [facility] Abdominal pain and vomiting - GERD / esophagitis - c/w start pantoprozole and zofran - due to severe abdominal pain, CT abdo pelvis with IV contrast was ordered on 09/03/20, patient declined - CT abdo pelvis w IV contrast completed on 09/04/20, showed no acute abnormalities, however artifact noted Hypertensive urgency - likely due to behaviours - now resolved - started on amlodipine, HCTZ - refractory to hydralazine, captopril - check renal US with dopplers - renal parenchyma wnl, unable to obtain dopplers due to patient noncooperating - check serum catecholamines, metanephrines and urine VMA DISCHARGE MEDICATIONS: Please see below. ALLERGIES: Please see below. PHYSICAL EXAMINATION ON DISCHARGE: VITAL SIGNS: please see below General: NAD, comfortable HEENT: PERRLA, EOMI, sclerae clear Neck: supple, normal ROM, no JVD Respiratory: lungs CTAB, no wheeze, no rales, no crackles CVS: RRR, normal S1, S2, no murmurs Abdo: soft, no masses, no hepatosplenomegaly, BS+, no rebound tenderness Extremities: no edema, pulses 2+ MSK: no joint deformities, normal ROM Neuro: no focal neuro deficits, moving all 4 extremities, CN2-12 intact. Strength 5/5 in all 4 extremities. No nystagmus. Psych: calm, cooperative, AAO x 3 LABORATORY DATA: Please see below. IMAGING: CXR (09/01/20): NO ACUTE PULMONARY DISEASE CT head wo contrast (09/01/20): NEGATIVE NONCONTRAST CT BRAIN CT abdo pelvis w IV contrast (09/04/20): FINDINGS: There is respiratory motion artifact obscuring the detail throughout the abdomen. CTA chest (09/04/20): FINDINGS: There is excellent visualization of the pulmonary arterial vasculature. No focal filling defects are seen that would be considered consistent with acute pulmonary emboli. The thoracic aorta is within normal limits. There is no mediastinal or hilar adenopathy. There is a small amount of soft tissue density seen filling the anterior junction line status quo. This is consistent with a minimal amount of residual thymic tissue. There are no pleural or pericardial effusions. The imaged upper abdomen and imaged osseous structures are within normal limits. Evaluation of the lung covarrubias shows them to be clear. Respiratory motion artifact is seen at the lung bases. IMPRESSION: There is no acute disease. Limited evaluation of the solid intra-abdominal organs and gallbladder show no abnormalities. Limited evaluation of the pancreas, adrenal glands, and kidneys show no abnormalities. Limited evaluation of the abdominal aorta and para-aortic regions show no abnormalities. There is no evidence of free fluid or free air, however, motion artifact in the upper abdomen does obscure the detail.There is no evidence of a mass or adenopathy. Bone window technique throughout the examination shows the osseous structures to be within normal limits. Renal US (09/05/20): IMPRESSION: Normal urinary tract sonography. No morphologic abnormality noted. Exam quality is substantially inhibited by patient's inability to fully cooperate. The Doppler study could not be accomplished as result of this. IMPRESSION: There is no evidence of acute disease. Exam limitations as described above. PROGNOSIS: good ACTIVITY: [As tolerated]. DIET: as tolerated DISCHARGE PLAN: DC to [facility] DISPOSITION: transfer to [facility] DISCHARGE INSTRUCTIONS: . Please follow-up with your primary care doctor within 3-5 days . Please follow-up with within 1-2 weeks . Please taking medications as prescribed. . If you develop bleeding, chest pain, shortness of breath, seizures, nausea, fevers, or otherwise worsening of your symptoms, please call 911 or return to the nearest emergency room. ITEMS TO FOLLOWUP ON ON OUTPATIENT: Final blood cultures. DISCHARGE CONDITION: [Stable]. TIME SPENT ON DISCHARGE: 35 minutes Vital Signs/I&Os Vital Signs Date Time Temp Pulse Resp B/P (MAP) Pulse Ox O2 Delivery O2 Flow Rate FiO2 09/05/20 08:50 110 156/100 09/05/20 08:00 22 96 Room Air 09/05/20 05:00 96.8 I&O- Last 24 Hours up to 6 AM 09/05/20 06:00 Intake Total 2680 ml Output Total 1900 ml Balance 780 ml Laboratory Data Labs 24H Laboratory Tests 2 09/04/20 10:59: Lactic Acid Level 2.4*H 09/04/20 14:15: Lactic Acid Followup at 4 Hours 3.2*H 09/04/20 19:00: Lactic Acid Level 3.0*H, Anion Gap 10, Glomerular Filtration Rate > 60.0, Ca lcium Level 9.0, Total Creatine Kinase 304H, Troponin I < 0.02 09/04/20 23:42: Lactic Acid Followup at 4 Hours 2.1*H 09/05/20 09:04: Immature Granulocyte % (Auto) 0.5, Neutrophils (%) (Auto) 56.6, Lymphocytes (%) (Auto) 28.9, Monocytes (%) (Auto) 11.3H, Eosinophils (%) (Auto) 2.3, Basophils (%) (Auto) 0.4, Neutrophils # (Auto) 4.7, Lymphocytes # (Auto) 2.4, Monocytes # (Auto) 0.9H, Eosinophils # (Auto) 0.2, Basophils # (Auto) 0.0, Nucleated Red Blood Cells % (auto) 0.0, Anion Gap 8, Glomerular Filtration Rate > 60.0, Lactic Acid Level 2.6*H, Calcium Level 9.2, Magnesium Level 2.1, Total Bilirubin 0.5, Aspartate Amino Transf (AST/SGOT) 14, Alanine Aminotransferase (ALT/SGPT) 16, Alkaline Phosphatase 50, Total Creatine Kinase 197H, Total Protein 7.0, Albumin 3.8, Albumin/Globulin Ratio 1.2 CBC/BMP Laboratory Tests 09/04/20 19:00 09/05/20 09:04 Microbiology Microbiology 09/04/20 Blood Culture, Received Pending 09/04/20 Blood Culture, Received Pending Discharge Medications Scheduled PRN Ibuprofen (Ibuprofen) 800 Mg Tablet, 800 MG PO Q6H PRN for PAIN, (Reported) Allergies Coded Allergies: haloperidol (Verified Allergy, Intermediate, spacticity, 01/18/20) JESSICA RUDOLPH MD Sep 05, 2020 10:59
[2020-09-05] MEDS ORDERED: HYDR12CA PO (11:01)
[2020-09-05] MEDS ORDERED: ACET-683 PO (11:01)
[2020-09-05] MEDS ORDERED: AMLO1TAB24 PO (11:01)
[2020-09-05 12:00] VITALS: BP 140/93
== END 2020-09-05 16:31 | DRG 52 ==
LOC: M ED 12:00 → M ED INP 12:01 → M PCU 21:05 → M MSPAV 09-02 16:10 → M PCU 09-03 15:14 → OBSVTOIN 09-03 16:18
PROVIDERS: ADMIT Internal Medicine Nephrology; ATTEND Family Medicine
DX: G93.41 Metabolic encephalopathy (principal); E87.2 Acidosis; R45.851 Suicidal ideations; F19.10 Other psychoactive substance abuse, uncomplicated; I16.0 Hypertensive urgency; K21.9 Gastro-esophageal reflux disease without esophagitis; K20.90 Esophagitis, unspecified without bleeding; R94.31 Abnormal electrocardiogram [ECG] [EKG]; T50.995A Adverse effect of other drugs, medicaments and biological substances, initial encounter; Z88.8 Allergy status to other drugs, medicaments and biological substances

== ENCOUNTER 2020-09-05 15:28 | Inpatient (IN) | payer OTHER ==
[~2020-09-05] VITALS: Ht 160 cm; Wt 83.9 kg
[~2020-09-05 15:28] MED LIST changes: +ACET-683 PO; +AMLO1TAB24 PO; +HYDR12CA PO
[2020-09-05] MEDS ORDERED: MAALOX 30 ML SUSP *UDC PO PRN (15:35)
[2020-09-05] MEDS ORDERED: ACETAMINOPHEN TAB 650MG DOSE (2X325MG) PO PRN (15:35)
[2020-09-05] MEDS ORDERED: MOM 30ML SUSPENSION UDC PO PRN (15:35)
[2020-09-05] MEDS: traZODone 50 MG TAB PO PRN (21:27)
[2020-09-05] MEDS: PANTOPRAZOLE 40MG TAB (PROTONIX) PO SCH (21:27)
[2020-09-05] MEDS ORDERED: BENZOCAINE 10% 9GM TUBE (ANBESOL) TOP PRN (21:35)
[2020-09-06] MEDS: IBUPROFEN 800 MG TAB PO PRN (02:12)
[2020-09-06] MEDS: ChlorproMAZINE 100 MG TABLET PO PRN (02:54)
[2020-09-06] MEDS ORDERED: LORazepam 2 MG/ML VIAL IM ONE (07:35)
[2020-09-06] MEDS: hydroCHLOROthiazide 12.5 MG CAPSULE PO SCH (07:44)
[2020-09-06] MEDS: PANTOPRAZOLE 40MG TAB (PROTONIX) PO SCH ×2 (07:44→21:30)
[2020-09-06] MEDS: amLODIPine 5 MG TAB PO SCH (07:53)
[2020-09-06 07:54] VITALS: BP 167/99
--- NOTE | 2020-09-06 10:35 | REP ---
INDICATION: vomiting. COMPARISON: Comparison is made with imaging by CT study September 04, 2020.. TECHNIQUE: Supine KUB. FINDINGS: The bowel gas pattern remains unremarkable with air and stool in a nondistended colon. No small or large bowel dilation is seen. The stomach is not dilated. Flank stripes and psoas margins are intact bilaterally. No mass, organomegaly, or pathologic calcification is seen. No acute bony finding. IMPRESSION: Negative KUB. <Electronically signed by Sidney Adam > 09/06/20 [id number]
[2020-09-06 11:04] LABS: BASO % 0.4 % (0.0-1.0); EOS % 0.4 % (0.0-3.0); HEMATOCRIT 39.6 % (36.0-47.0); HEMOGLOBIN 12.7 g/dl (12.0-15.5); LYMPH # 1.2 10^3/uL (1.5-5.0); LYMPH % 14.3 % (24.0-44.0); MEAN CORPUSCULAR HEMOGLOBIN 24.9 pg (27.0-33.0); MEAN CORPUSCULAR HGB CONC 32.1 g/dl (32.0-36.5); MEAN CORPUSCULAR VOLUME 77.5 fl (80.0-96.0); MONO # 0.8 10^3/uL (0.0-0.8); MONO % 9.6 % (2.0-8.0); NEUTROPHILS # 6.2 10^3/uL (1.5-8.5); NEUTROPHILS % 75.1 % (36.0-66.0); PLATELET COUNT, AUTOMATED 380 10^3/uL (150-450); RED BLOOD COUNT 5.11 10^6/uL (4.00-5.40); WHITE BLOOD COUNT 8.3 10^3/uL (4.0-10.0)
[2020-09-06 11:31] LABS: ALBUMIN 4.2 GM/DL (3.2-5.2); ALT/SGPT 19 U/L (12-78); BILIRUBIN,TOTAL 0.4 MG/DL (0.2-1.0); BLOOD UREA NITROGEN 6 MG/DL (7-18); CALCIUM LEVEL 9.5 MG/DL (8.5-10.1); CARBON DIOXIDE LEVEL 26 MEQ/L (21-32); CHLORIDE LEVEL 101 MEQ/L (98-107); CREATININE FOR GFR 0.61 MG/DL (0.55-1.30); GLOMERULAR FILTRATION RATE > 60.0 (>60); GLUCOSE, FASTING 103 MG/DL (70-100); NT-PRO BNP 38 PG/ML (<125); POTASSIUM SERUM 3.6 MEQ/L (3.5-5.1); SODIUM LEVEL 134 MEQ/L (136-145); TOTAL PROTEIN 7.8 GM/DL (6.4-8.2)
[2020-09-06] MEDS: clonazePAM 1 MG TAB PO SCH ×2 (12:06→21:30)
[2020-09-06] MEDS ORDERED: ONDANSETRON 4 MG ORAL DISINTEGRATING TAB PO PRN (12:40)
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
[2020-09-06 16:13] VITALS: BP 133/79
--- NOTE | 2020-09-06 18:26 | HPEPDOC ---
[facility] Medical History & Physical Date of Admission Sep 06, 2020 Date of Service: Sep 06, 2020 History and Physical CHIEF COMPLAINT: suicidal ideation, self injurious behaviour HISTORY OF PRESENT ILLNESS: 20-year-old female was brought in to [facility] on September 01 by [place] [facility] for suicidal ideation and possible attempt. Dr. lu had committed suicide. That same day. Patient was noted to have raya on her neck, suspected of attempting to hang herself. The patient was inconsolable was complaining of severe chest pain and abdominal pain as well as nausea. Patient was admitted to [facility] from September 01 until September 05 for workup of abdominal pain and persistent lactic acidosis. CT imaging of the chest and abdom en did not reveal acute upper modalities. Patient's lactic acidosis resolved and she was transferred to behavioral health unit for ongoing psychiatric assessment. At the present time, [facility] staff has expressed concerns over the patient's nausea and ongoing complaints of abdominal pain. LA wnl. KUB was performed which did not show evidence for bowel distention to indicate obstruction. The time of examination, the patient states that her abdominal pain has resolved and her nausea has as well. She is hungry, asking for food and submitted to drink. She denies any chest pain, palpitations, fevers, chills, nausea, vomiting or diarrhea at this time. PAST MEDICAL HISTORY: Self-injurious, risky behavior Ovarian cyst PAST SURGICAL HISTORY: Appendectomy SOCIAL HISTORY: Active smoker Patient denies illicit substance abuse Urine drug screen positive for marijuana and benzodiazepines of the patient had been given benzodiazepines during a recent ER visit FAMILY HISTORY: Reviewed with patient did not contribute pertinent family history ALLERGIES: Please see below. REVIEW OF SYSTEMS: A 10 point review of systems was completed relevant findings were noted in the [facility] MEDICATIONS: Please see below. PHYSICAL EXAMINATION: VITAL SIGNS: please see below General: NAD, comfortable HEENT: PERRLA, EOMI, sclerae clear Neck: supple, normal ROM, no JVD Respiratory: lungs CTAB, no wheeze, no rales, no crackles CVS: RRR, normal S1, S2, no murmurs Abdo: soft, no masses, no hepatosplenomegaly, BS+, no rebound tenderness Extremities: no edema, pulses 2+ MSK: no joint deformities, normal ROM Neuro: no focal neuro deficits, moving all 4 extremities, CN2-12 intact. Strength 5/5 in all 4 extremities. No nystagmus. Psych: calm, cooperative, AAO x 3 LABORATORY DATA: See below. IMAGING: KUB on 09/06/20 The bowel gas pattern remains unremarkable with air and stool in a nondistended colon. No small or large bowel dilation is seen. The stomach is not dilated. Flank stripes and psoas margins are intact bilaterally. No mass, organomegaly, or pathologic calcification is seen. No acute bony finding. MICROBIOLOGY: Please see below. ASSESSMENT: 20-year-old female with history of suicidal ideation recently admitted to inpatient medical unit for workup of abdominal pain. CT abdomen 2 showed chronic reflux esophagitis without other acute abdomen allergies. She was further treated for hypertensive urgency. Hospitalist was consulted for medical intake. PLAN: Suicidal ideation/self-injurious behavior: Per psychiatry Abdominal pain/nausea: Lab work reviewed without acute abnormalities. Lactic acid has remained appropriate at 1.9. KUB does not show dilated bowel loops suggest intestinal obstruction. Zofran ODT ordered when necessary for nausea. Continue with pantoprazole. Will check EKG to assess for QTc prolongation Hypertension: BP currently properly controlled with amlodipine 5 mg and hydrochlorothiazide 12.5 mg Thank you for involving me in the care of this patient. Please reconsult as needed Vital Signs Vital Signs Date Time Temp Pulse Resp B/P (MAP) Pulse Ox O2 Delivery O2 Flow Rate FiO2 09/06/20 16:13 98.0 100 16 133/79 (97) 96 Room Air Laboratory Data Labs 24H Laboratory Tests 2 09/06/20 10:40: Immature Granulocyte % (Auto) 0.2, Neutrophils (%) (Auto) 75.1H, Lymphocytes (%) (Auto) 14.3L, Monocytes (%) (Auto) 9.6H, Eosinophils (%) (Auto) 0.4, Basophils (%) (Auto) 0.4, Neutrophils # (Auto) 6.2, Lymphocytes # (Auto) 1.2L, Monocytes # (Auto) 0.8, Eosinophils # (Auto) 0.0, Basophils # (Auto) 0.0, Nucleated Red Blood Cells % (auto) 0.0, Anion Gap 7L, Glomerular Filtration Rate > 60.0, Lactic Acid Level 1.9, Calcium Level 9.5, Total Bilirubin 0.4, Aspartate Amino Transf (AST/SGOT) 17, Alanine Aminotransferase (ALT/SGPT) 19, Alkaline Phosphatase 59, HF-Ptw-L-Type Natriuretic Peptide 38, Total Protein 7.8, Albumin 4.2, Albumin/Globulin Ratio 1.2 CBC/BMP Laboratory Tests 09/06/20 10:40 Home Medications Scheduled Amlodipine Besylate (Amlodipine Besylate) 2.5 Mg Tablet, 2.5 MG PO DAILY for blood pressure Aripiprazole (Abilify) 5 Mg Tablet, 5 MG PO BID for mood Allergies Coded Allergies: haloperidol (Verified Allergy, Intermediate, spacticity, 01/18/20) A-FIB/CHADSVASC A-FIB History Current/History of A-Fib/PAF?: No Current PO Anticoag Therapy: No JESSICA RUDOLPH MD Sep 06, 2020 18:26
[2020-09-06] MEDS: traZODone 50 MG TAB PO PRN (21:30)
[2020-09-07] MEDS: ChlorproMAZINE 100 MG TABLET PO PRN (05:19)
[2020-09-07] MEDS: hydroCHLOROthiazide 12.5 MG CAPSULE PO SCH (09:20)
[2020-09-07] MEDS: amLODIPine 5 MG TAB PO SCH (09:21)
[2020-09-07] MEDS: clonazePAM 1 MG TAB PO SCH ×2 (09:21→21:24)
[2020-09-07] MEDS: PANTOPRAZOLE 40MG TAB (PROTONIX) PO SCH ×2 (09:21→21:24)
[2020-09-07 16:08] VITALS: BP 131/73
--- NOTE | 2020-09-07 17:50 | MHIPNPDOC ---
[facility] Progress Note Progress Note DATE OF SERVICE: 09/07/20 HISTORY: 20 year old female with h/o psychiatric illness who has previous admissions to different hospitals, for depression and SA. The day she was admitted to the hospital she had been found with a rope tied around her neck, she developed medical problems, was admitted to the mical floor and when she became medically clear, she was discharged to [facility] VITAL SIGNS: See below. NEW TEST RESULTS: See below. CURRENT MEDICATIONS: See below. MENTAL STATUS EXAMINATION: Patient is a 20-year old female, who is alert, uncooperative, dressed in hospital clothes. Speech: Is normal in tone, slow and very loud when she becomes agitated. Language skills are fair Thought processes including: linear. Thought content: she exhibits paranoid thoughts, ideas of reference, guilty thoughts, denies SI/HI. Description of associations: not loose Description of abnormal or psychotic thoughts: she continues to be guarded and paranoid, ramo TAV hallucinations, not responding to internal stimuli. Judgment: poor Insight: poor. Orientation: x 3. Recent and remote memory: fair. Attention span and concentration: fair. Language: adequate. Fund of knowledge: average. Mood: depressed, irritable, anxious. Affect: congruent with mood, labile. DIAGNOSES: 1. Unspecified mood disorder 2. R/O substance induced mood disorder. 3. R/O bipolar disorder 4. Substance Abuse 5. R/O borderline personality disorder. ASSESSMENT: the patient is still complaining because she has not gone home and she continues to deny SI but the day she was admitted to the Hospital, she had been found with a rope tied around her neck, plus she has a h/o previous suicide attempts. At this time, I believe the substance abuse has played a role in this episode, but she has an underlying psychiatric illness MANAGEMENT PLAN: Will continue with current treatment plan TIME SPENT: 15 minutes. Vital Signs Vital Signs Date Time Temp Pulse Resp B/P (MAP) Pulse Ox O2 Delivery O2 Flow Rate FiO2 09/07/20 09:21 100 148/89 09/06/20 16:13 98.0 16 96 Room Air Current Medications Current Medications Medications (Trade) Dose Ordered Sig/Basim Route PRN Reason Start Time Stop Time Status Last Admin Dose Admin Acetaminophen (Tylenol Tab) 650 mg Q6HP PRN PO HEADACHE or DISCOMFORT 4/15/21 15:35 Al Hydrox/Mg Hydrox/Simethicone (Mylanta) 30 ml Q4HP PRN PO HEARTBURN/INDIGESTION 09/05/20 15:35 Amlodipine Besylate (Norvasc) 5 mg DAILY PO 09/06/20 09:00 09/07/20 09:21 Aripiprazole (AbiLIFY) 5 mg BID PO 09/05/20 21:00 09/07/20 09:21 Benzocaine (Anbesol Gel) apply to tooth for Wis... Q4HP PRN TOP PAIN 09/05/20 21:35 09/06/20 07:45 Chlorpromazine HCl (Thorazine) 100 mg Q6HP PRN PO anxiety/agitation 09/05/20 15:35 09/07/20 05:19 Clonazepam (KlonoPIN) 1 mg BID PO 09/06/20 09:00 09/07/20 09:21 Home Med (Med Rec Complete!) ASDIRECTED XX 09/05/20 17:10 09/05/20 17:12 DC Hydrochlorothiazide (Hydrodiuril) 12.5 mg DAILY PO 09/06/20 09:00 09/07/20 09:20 Ibuprofen (Advil) 800 mg Q8HP PRN PO MODERATE PAIN (PS 5-7) 09/05/20 21:35 09/06/20 02:12 Magnesium Hydroxide (Milk Of Magnesia) 30 ml DAILYPRN PRN PO CONSTIPATION 09/05/20 15:35 Ondansetron HCl (Zofran Odt) 4 mg Q8HP PRN PO NAUSEA OR VOMITING 09/06/20 12:40 09/07/20 04:49 Pantoprazole Sodium (Protonix) 40 mg BID PO 09/05/20 21:00 09/07/20 09:21 Trazodone HCl (Desyrel) 50 mg QHSP PRN PO INSOMNIA 09/05/20 15:35 09/06/20 21:30 Allergies Coded Allergies: haloperidol (Verified Allergy, Intermediate, spacticity, 01/18/20) SELWYN GREEN MD Sep 07, 2020 11:56
[2020-09-07] MEDS ORDERED: diphenhydrAMINE 50MG CAP PO PRN (18:05)
--- NOTE | 2020-09-07 21:10 | ECGEPIP ---
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
[2020-09-07] MEDS: traZODone 50 MG TAB PO PRN (21:24)
[2020-09-08] MEDS: ChlorproMAZINE 100 MG TABLET PO PRN (00:26)
[2020-09-08 06:00] VITALS: BP 138/85
[2020-09-08] MEDS: clonazePAM 1 MG TAB PO SCH ×2 (09:06→22:22)
[2020-09-08] MEDS: hydroCHLOROthiazide 12.5 MG CAPSULE PO SCH (09:06)
[2020-09-08] MEDS: PANTOPRAZOLE 40MG TAB (PROTONIX) PO SCH ×2 (09:06→22:21)
[2020-09-08] MEDS: amLODIPine 5 MG TAB PO SCH (09:06)
[2020-09-08 17:03] VITALS: BP 142/87
[2020-09-08] MEDS: IBUPROFEN 800 MG TAB PO PRN (17:14)
[2020-09-09] MEDS: traZODone 50 MG TAB PO PRN ×2 (00:04→23:35)
[2020-09-09 06:22] VITALS: BP 148/98
[2020-09-09] MEDS: PANTOPRAZOLE 40MG TAB (PROTONIX) PO SCH ×2 (10:03→23:35)
[2020-09-09] MEDS: hydroCHLOROthiazide 12.5 MG CAPSULE PO SCH (10:03)
[2020-09-09] MEDS: amLODIPine 5 MG TAB PO SCH (10:03)
[2020-09-09] MEDS: clonazePAM 1 MG TAB PO SCH ×2 (10:04→23:35)
--- NOTE | 2020-09-09 14:38 | MHIPN ---
[facility] PROGRESS NOTE DATE: 09/09/2020 CHIEF COMPLAINT: "I don't want to talk to anybody. I want to go home." SUBJECTIVE: This is a 20-year-old female living with her boyfriend who was transferred from the medical unit. Patient was admitted for abdominal pain. She was investigated and she was transferred to inpatient mental health unit ([facility]). Allegedly, she told the emergency room (ER) that she wanted to hurt herself, which patient denies. Currently, she is doing better. Sleep and appetite are good. She is isolative. MENTAL STATUS EXAMINATION: Casually dressed, laying in her bed. Her grooming is poor. Psychomotor activity is normal. Speech: Rate, rhythm, volume are good. Denied any auditory or visual hallucinations. Denied suicidal or homicidal ideas. Memory: Immediate, remote, recent are fine. Insight and judgment are limited. VITAL SIGNS: Temperature 98.2, pulse 76, respiratory rate 16, blood pressure 148/98. LABORATORY STUDIES: CBC within normal limits. CMP within normal limits. DIAGNOSES: 1. Psychotic disorder, unspecified. 2. Rule out borderline personality disorder. PLAN: Continue current medications. To discharge her after observing for 24 hours. ESTIMATED LENGTH OF STAY: One day. TIME SPENT: 25 minutes.
[2020-09-09] MEDS: ChlorproMAZINE 100 MG TABLET PO PRN ×2 (16:06→23:37)
[2020-09-10 07:09] VITALS: BP 161/99
[2020-09-10 09:00] VITALS: BP 123/53
[2020-09-10] MEDS: amLODIPine 5 MG TAB PO SCH (09:00)
[2020-09-10] MEDS: hydroCHLOROthiazide 12.5 MG CAPSULE PO SCH (09:44)
[2020-09-10] MEDS: PANTOPRAZOLE 40MG TAB (PROTONIX) PO SCH (09:44)
[2020-09-10] MEDS: clonazePAM 1 MG TAB PO SCH (09:44)
[2020-09-10 11:12] VITALS: BP 122/74
[2020-09-10 11:25] VITALS: BP 136/74
[2020-09-10 11:27] VITALS: BP 111/68
[2020-09-10 11:29] VITALS: BP 108/44
--- NOTE | 2020-09-10 12:36 | MHDS ---
DISCHARGE SUMMARY DATE OF ADMISSION: 09/05/2020 DATE OF DISCHARGE: 09/10/2020 DIAGNOSES: 1. Psychotic disorder, not otherwise specified. 2. Rule out bipolar 1 disorder with psychotic features. 3. Rule out borderline personality disorder. IDENTIFYING DATA: This is a 20-year-old female living with her boyfriend who was transferred from the Medical Unit, was admitted because of abdominal pain, was investigated, and she was transferred after she was medically cleared. Allegedly, she told the Emergency Room that she wanted to hurt herself, but the patient denies. For details of HPI, past psychiatric history, medical history, substance abuse history, social history, please refer to the initial evaluation. HOSPITAL COURSE: Initially the patient was agitated, angry, somewhat theatrical, crying, sobbing but she has been refusing to talk to anybody. However she was placed on Abilify, I believe 5 mg twice daily and Clonazepam one mg twice daily. She was provided with individual group and milieu therapy. The patient slowly attending groups. Her agitation subsided. She interacted well with staff and peers. She was stable at the time of discharge. VITAL SIGNS: Temperature 98.9, pulse is 108, respiratory rate is 20, blood pressure is 139/90. LABORATORY STUDIES: CBC within normal limits. CMP within normal limits. MENTAL STATUS EXAMINATION: Casually dressed. Psychomotor activity is normal. Speech rate, rhythm and volume are good. Denied any auditory or visual hallucinations. Denied suicidal or homicidal ideas. Memory, immediate, remote and recent are good. Insight and judgment are fair. PLAN: 1. The plan is to discharge her home. 2. Her follow up has to be decided as the patient is ambivalent that she wants to get in follow up at [facility] or in [place].
[2020-09-10] MEDS ORDERED: AMLO25TA PO (15:37)
[2020-09-10] MEDS ORDERED: ABIL1TAB11 PO (15:37)
[2020-09-10] MEDS ORDERED: CLON1TAB8 PO (15:37)
--- NOTE | 2020-09-10 19:56 | IPNPDOC ---
Subjective Date Seen The patient was seen on 09/10/20. Subjective Chief Complaint/HPI Patient had an episode of dizziness and light headedness and collapsed into the floor. Had a small cut at the chin which she says she had before just opened out. No injury. Patient said then she thinks all the psychiatric meds were making her very dizzy. She had orthostatic hypotension when Bps were tested soon after the episode. Oleg had complained of feeling very thirsty. Objective Physical Examination General Exam: Positive: Alert, Cooperative, No Acute Distress Eye Exam: Positive: PERRLA, Conjunctiva & lids normal, EOMI; Negative: Sclera icteric ENT Exam: Positive: Atraumatic, Mucous membr. moist/pink, Pharynx Normal Chest Exam: Positive: Clear to auscultation, Normal air movement Heart Exam: Positive: Rate Normal, Regular Rhythm, Normal S1, Normal S2; Negative: Murmurs, Rubs Abdomen Exam: Positive: Normal bowel sounds, Soft; Negative: Tenderness, Hepatospenomegaly Skin Exam: Positive: Nl turgor and temperature, Other skin issue (small cut under the skin); Negative: Rash, Breakdown Assessment /Plan Assessment Orthostatic hypotension likely a combination of antihypertensive meds and anti psychiatric meds will stop HCTZ and reduce amlodipine dosage. If patient continues with the anti psychiatric meds then her bp may continue to be low then may come off the Bp meds. H/o Hypertension on admission patient was very agitated, combative so bp was very high. Then she reports that she was in a lot of pain. Patient does tell me that she has been told that she has white coat hypertension At present Bp low normal. Will stop HCTZ and reduce amlodipine. would benefit from an ambulatory BP monitoring at home. follow up with PMD Plan/VTE VTE Prophylaxis Ordered?: No VS, I&O, 24H, Fishbone Vital Signs/I&O Vital Signs Date Time Temp Pulse Resp B/P (MAP) Pulse Ox O2 Delivery O2 Flow Rate FiO2 09/10/20 11:29 158 108/44 (65) 09/10/20 07:09 98.9 20 95 Room Air LILLIAM COHEN MD Sep 10, 2020 19:56
== END 2020-09-10 16:27 | disposition home or self-care (01) | DRG 753 ==
LOC: M PSY 16:33
PROVIDERS: ADMIT Psychiatry & Neurology Psychiatry; ATTEND Psychiatry & Neurology Psychiatry
DX: F31.5 Bipolar disorder, current episode depressed, severe, with psychotic features (principal); I10 Essential (primary) hypertension; R45.851 Suicidal ideations; F60.3 Borderline personality disorder; F29 Unspecified psychosis not due to a substance or known physiological condition; F17.200 Nicotine dependence, unspecified, uncomplicated; Z88.8 Allergy status to other drugs, medicaments and biological substances; I95.1 Orthostatic hypotension

== ENCOUNTER 2020-09-22 06:37 | Emergency (ER) | payer OTHER ==
[~2020-09-22] VITALS: Ht 160 cm; Wt 80.6 kg
[~2020-09-22 06:37] MED LIST changes: +ABIL1TAB11 PO; +AMLO25TA PO; +CLON1TAB8 PO
[2020-09-22] MEDS ORDERED: ACETAMINOPHEN 500 MG TAB PO ONE (07:10)
[2020-09-22] MEDS ORDERED: LORazepam 2 MG/ML VIAL IV STA (07:43)
[2020-09-22 07:47] LABS: AMPHETAMINES LEVEL URINE NEGATIVE (NEGATIVE); BARBITURATES URINE NEGATIVE (NEGATIVE); BENZODIAZEPINES URINE NEGATIVE (NEGATIVE); CANNABINOIDS URINE POSITIVE (NEGATIVE); COCAINE METABOLITE URINE NEGATIVE (NEGATIVE); METHADONE URINE NEGATIVE (NEGATIVE); OPIATES URINE NEGATIVE (NEGATIVE); PHENCYCLIDINE URINE NEGATIVE (NEGATIVE)
[2020-09-22] MEDS ORDERED: diphenhydrAMINE 50MG/ML VIAL (J1200) IV ONE (07:50)
[2020-09-22 07:54] LABS: BASO % 0.3 % (0.0-1.0); EOS % 0.5 % (0.0-3.0); HEMATOCRIT 36.8 % (36.0-47.0); HEMOGLOBIN 11.1 g/dl (12.0-15.5); LYMPH % 27.4 % (24.0-44.0); MEAN CORPUSCULAR HEMOGLOBIN 23.6 pg (27.0-33.0); MEAN CORPUSCULAR HGB CONC 30.2 g/dl (32.0-36.5); MEAN CORPUSCULAR VOLUME 78.3 fl (80.0-96.0); MONO # 0.7 10^3/uL (0.0-0.8); MONO % 9.7 % (2.0-8.0); NEUTROPHILS # 4.6 10^3/uL (1.5-8.5); NEUTROPHILS % 61.7 % (36.0-66.0); PLATELET COUNT, AUTOMATED 447 10^3/uL (150-450); WHITE BLOOD COUNT 7.4 10^3/uL (4.0-10.0)
[2020-09-22 08:24] LABS: ACETAMINOPHEN LEVEL < 2.0 UG/ML (10.0-30.0); ALBUMIN 4.2 GM/DL (3.2-5.2); ALT/SGPT 16 U/L (12-78); AMYLASE 52 U/L (25-115); BILIRUBIN,DIRECT 0.1 MG/DL (0.0-0.2); BILIRUBIN,TOTAL 0.7 MG/DL (0.2-1.0); CK-MB VALUE MASS < 1.0 NG/ML (<3.6); CPK CREATINE PHOSPHOKINASE 81 U/L (26-192); ETHYL ALCOHOL (ETHANOL) < 0.003 % (0.000-0.010); FREE T4 1.26 NG/DL (0.76-1.46); LIPASE 120 U/L (73-393); MB/CK RELATIVE INDEX 1.23 (< OR =4); SALICYLATE LEVEL < 1.7 MG/DL (5.0-30.0); TOTAL PROTEIN 8.3 GM/DL (6.4-8.2); TROPONIN I < 0.02 NG/ML (< 0.10)
--- NOTE | 2020-09-22 08:32 | REP ---
INDICATION: lower abd pain, h/o ovarain cysts COMPARISON: 08/31/2020 TECHNIQUE: Transabdominal pelvic ultrasound using curved array transducer. FINDINGS: Bladder is under distended and measures 4.7 x 3.8 x 1.6 cm. Transabdominal technique was performed and neither the uterus or ovaries were identified. Patient refused transvaginal examination. No pelvic fluid or obvious adnexal mass lesion identified. IMPRESSION: Limited examination. Uterus and ovaries not visualized. No obvious abnormality. <Electronically signed by Soren Roque > 09/22/20 0840
[2020-09-22] MEDS ORDERED: ISOVUE-370 76% 100ML VIAL As Ordered ONE (08:44)
[2020-09-22] MEDS ORDERED: ONDANSETRON 4MG/2ML VIAL IV ONE (08:45)
[2020-09-22] MEDS ORDERED: MORPHINE 4 MG/ML 1ML VIAL/SYRINGE (J2270) IV ONE ×2 (08:45→11:35)
--- NOTE | 2020-09-22 09:46 | REP ---
INDICATION: r/o PE COMPARISON: None. TECHNIQUE: Axial contrast enhanced images from the thoracic inlet to the upper abdomen using pulmonary embolus technique with multiplanar re-formations. 75 ml Isovue 370 intravenous contrast material administered without complication. This CT examination was performed using the following dose reduction techniques: Automated exposure control, adjustment of mA and/or kv according to the patient's size, and use of iterative reconstruction technique. FINDINGS: Satisfactory enhancement of the pulmonary vasculature is achieved and no filling defects are identified to suggest pulmonary embolus. Further evaluation of the mediastinum demonstrates normal thoracic aorta, heart and pericardium. The bilateral lung covarrubias are well aerated and clear without consolidation pleural effusion or pneumothorax. Tracheobronchial tree is patent. No nodule or mass lesion is identified. No adenopathy noted. Surrounding musculoskeletal structures intact IMPRESSION: No evidence for pulmonary embolus. No acute mediastinal or pleural parenchymal process. <Electronically signed by Soren Roque > 09/22/20 0971
--- NOTE | 2020-09-22 09:50 | REP ---
INDICATION: lower abd pain. COMPARISON: 09/04/2020 TECHNIQUE: Axial contrast-enhanced images from the lung bases to the pubic symphysis using 100 cc Isovue 370 intravenous contrast material. Coronal and sagittal reformations obtained. This CT examination was performed using the following dose reduction techniques: Automated exposure control, adjustment of mA and/or kv according to the patient's size, and the use of iterative reconstruction technique. FINDINGS: Liver, spleen, pancreas, gallbladder, bilateral adrenal glands and kidneys are normal. The enteric system including stomach, small, and large bowel appears normal. No evidence for obstruction or acute inflammatory process. Normal terminal ileum and cecum are identified in the right lower quadrant. Incidental small to moderate hiatal hernia at the gastroesophageal junction noted. Pelvis demonstrates normal bladder and age-appropriate uterus/adnexa. No ascites. No free air. No intraperitoneal or retroperitoneal adenopathy. Abdominal aorta and vasculature appear normal. Musculoskeletal structures are intact and without acute osseous abnormality. There is fat stranding in the midline posterior subcutaneous tissues overlying the lower lumbar spine and upper sacral region of uncertain etiology which should be correlated clinically. IMPRESSION: No acute abdominopelvic pathology appreciated. Fat stranding and small amount of inflammatory change in the subcutaneous tissues midline superficial to the lower lumbar/sacral spine which is similar to prior examination and warrants correlation. <Electronically signed by Soren Roque > 09/22/20 0900
--- NOTE | 2020-09-22 10:17 | REP ---
INDICATION: chest pain COMPARISON: 09/01/2020 TECHNIQUE: Portable AP view of the chest FINDINGS: The mediastinum and cardiac silhouette are stable and within normal limits for portable technique. The lung covarrubias are clear without acute consolidation, effusion, or pneumothorax. Skeletal structures are intact. IMPRESSION: No acute cardiopulmonary process appreciated. <Electronically signed by Soren Roque > 09/22/20 1019
[2020-09-22 11:29] VITALS: BP 175/99
[2020-09-22] MEDS ORDERED: CAPSAICIN 0.025% CR 60 GM TOP ONE (11:40)
[2020-09-22 11:59] LABS: CK-MB VALUE MASS < 1.0 NG/ML (<3.6); CPK CREATINE PHOSPHOKINASE 82 U/L (26-192); MB/CK RELATIVE INDEX 1.22 (< OR =4); TROPONIN I < 0.02 NG/ML (< 0.10)
[2020-09-22] MEDS ORDERED: HYDR-3713 PO (12:16)
--- NOTE | 2020-09-22 12:47 | ECGEPIP ---
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
--- NOTE | 2020-09-22 12:54 | ECGEPIP ---
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
== END 2020-09-22 12:32 | disposition home or self-care (01) ==
LOC: M ED 06:37
DX: G89.29 Other chronic pain (principal); R10.30 Lower abdominal pain, unspecified; R07.9 Chest pain, unspecified; R11.10 Vomiting, unspecified; M79.89 Other specified soft tissue disorders; K21.9 Gastro-esophageal reflux disease without esophagitis; F41.9 Anxiety disorder, unspecified; F33.9 Major depressive disorder, recurrent, unspecified; F17.200 Nicotine dependence, unspecified, uncomplicated; F12.10 Cannabis abuse, uncomplicated; Z88.8 Allergy status to other drugs, medicaments and biological substances; Z79.899 Other long term (current) drug therapy
CPT/HCPCS: 36415; 71045; 71275; 74177; 76856; 80047; 80076; 80143; 80307; 81001; 82077; 82150; 82550; 82553; 83690; 84439; 84443; 84702; 85025; 85379; 93005; 96374; 96375; 96376; 99284; J1200; J2060; J2270; J2405; Q9967

== ENCOUNTER 2020-10-31 11:03 | Emergency (ER) | payer OTHER ==
[~2020-10-31] VITALS: Ht 152.4 cm; Wt 82.7 kg
[~2020-10-31 11:03] MED LIST changes: +HYDR-3713 PO
[2020-10-31] MEDS ORDERED: LORazepam 1 MG TAB PO STA (11:24)
[2020-10-31] MEDS ORDERED: ACETAMINOPHEN 500 MG TAB PO ONE (11:25)
[2020-10-31 11:49] LABS: HEMATOCRIT 35.6 % (36.0-47.0); MEAN CORPUSCULAR HEMOGLOBIN 22.8 pg (27.0-33.0); MEAN CORPUSCULAR HGB CONC 30.9 g/dl (32.0-36.5); MEAN CORPUSCULAR VOLUME 73.9 fl (80.0-96.0); PLATELET COUNT, AUTOMATED 417 10^3/uL (150-450); RED BLOOD COUNT 4.82 10^6/uL (4.00-5.40)
[2020-10-31 12:20] LABS: HCG, SERUM QUALITATIVE NEGATIVE (NEGATIVE)
[2020-10-31 12:22] LABS: AMPHETAMINES LEVEL URINE NEGATIVE (NEGATIVE); BARBITURATES URINE NEGATIVE (NEGATIVE); BENZODIAZEPINES URINE NEGATIVE (NEGATIVE); CANNABINOIDS URINE POSITIVE (NEGATIVE); COCAINE METABOLITE URINE NEGATIVE (NEGATIVE); METHADONE URINE NEGATIVE (NEGATIVE); OPIATES URINE NEGATIVE (NEGATIVE); PHENCYCLIDINE URINE NEGATIVE (NEGATIVE)
[2020-10-31 12:27] LABS: ACETAMINOPHEN LEVEL < 2.0 UG/ML (10.0-30.0); ALBUMIN 4.4 GM/DL (3.2-5.2); ALT/SGPT 23 U/L (12-78); BILIRUBIN,DIRECT 0.1 MG/DL (0.0-0.2); BILIRUBIN,TOTAL 0.6 MG/DL (0.2-1.0); BLOOD UREA NITROGEN 19 MG/DL (7-18); CALCIUM LEVEL 9.5 MG/DL (8.5-10.1); CARBON DIOXIDE LEVEL 31 MEQ/L (21-32); CHLORIDE LEVEL 99 MEQ/L (98-107); CREATININE FOR GFR 0.76 MG/DL (0.55-1.30); ETHYL ALCOHOL (ETHANOL) < 0.003 % (0.000-0.010); GLOMERULAR FILTRATION RATE > 60.0 (>60); GLUCOSE, FASTING 96 MG/DL (70-100); POTASSIUM SERUM 3.2 MEQ/L (3.5-5.1); SALICYLATE LEVEL < 1.7 MG/DL (5.0-30.0); SODIUM LEVEL 136 MEQ/L (136-145); THYROID STIMULATING HORMONE 0.846 uIU/ML (0.358-3.740); TOTAL PROTEIN 7.9 GM/DL (6.4-8.2)
[2020-10-31 16:41] VITALS: BP 172/89
== END 2020-10-31 16:42 | disposition home or self-care (01) ==
LOC: M ED 11:03
DX: F32.89 Other specified depressive episodes (principal); F17.200 Nicotine dependence, unspecified, uncomplicated; Z88.6 Allergy status to analgesic agent

== ENCOUNTER 2021-01-13 18:48 | Emergency (ER) | payer OTHER ==
[~2021-01-13] VITALS: Ht 162.6 cm; Wt 80.0 kg
[2021-01-13 18:49] VITALS: BP 174/119
== END 2021-01-13 22:42 | disposition left against medical advice (07) ==
LOC: M ED 18:48
DX: Z53.21 Procedure and treatment not carried out due to patient leaving prior to being seen by health care provider (principal)

== ENCOUNTER 2021-01-17 16:03 | Emergency (ER) | payer OTHER ==
[~2021-01-17] VITALS: Ht 160 cm; Wt 80.4 kg
[2021-01-17] MEDS ORDERED: KETOROLAC 60MG 2ML VIAL IM ONE (19:35)
[2021-01-17] MEDS ORDERED: LIDOCAINE VISCOUS 2% SOLN 15ML UDC SSP ONE (19:35)
[2021-01-17] MEDS ORDERED: AUGMENTIN 875 MG TAB PO ONE (19:35)
[2021-01-17] MEDS ORDERED: AUGM875T28 PO (19:38)
[2021-01-17] MEDS ORDERED: KETO10TAB PO (19:38)
[2021-01-17] MEDS ORDERED: LIDO2SOL17 SSP (19:38)
[2021-01-17 20:27] VITALS: BP 132/65
== END 2021-01-17 20:29 | disposition home or self-care (01) ==
LOC: M ED 16:03
DX: R68.84 Jaw pain (principal); M54.5 Low back pain; F41.9 Anxiety disorder, unspecified; Z79.899 Other long term (current) drug therapy
CPT/HCPCS: 96372; 99283; J1885

== ENCOUNTER 2021-01-28 21:54 | Emergency (ER) | payer OTHER ==
[~2021-01-28] VITALS: Ht 162.6 cm; Wt 81.2 kg
[~2021-01-28 21:54] MED LIST changes: +AUGM875T28 PO; +KETO10TAB PO; +LIDO2SOL17 SSP
[2021-01-28 21:55] VITALS: BP 174/94
== END 2021-01-29 00:34 | disposition left against medical advice (07) ==
LOC: M ED 21:54
DX: Z53.21 Procedure and treatment not carried out due to patient leaving prior to being seen by health care provider (principal)

== ENCOUNTER 2021-02-05 22:39 | Emergency (ER) | payer OTHER ==
[~2021-02-05] VITALS: Ht 162.6 cm; Wt 78.3 kg
[2021-02-06] MEDS ORDERED: KETOROLAC 30 MG/ML 1ML VIAL IV ONE (03:30)
[2021-02-06] MEDS ORDERED: ONDANSETRON 4MG/2ML VIAL IV ONE (03:30)
[2021-02-06 05:58] LABS: HEMATOCRIT 40.2 % (36.0-47.0); HEMOGLOBIN 12.3 g/dl (12.0-15.5); MEAN CORPUSCULAR HEMOGLOBIN 22.7 pg (27.0-33.0); MEAN CORPUSCULAR HGB CONC 30.6 g/dl (32.0-36.5); MEAN CORPUSCULAR VOLUME 74.2 fl (80.0-96.0); PLATELET COUNT, AUTOMATED 340 10^3/uL (150-450); RED BLOOD COUNT 5.42 10^6/uL (4.00-5.40); WHITE BLOOD COUNT 8.5 10^3/uL (4.0-10.0)
[2021-02-06] MEDS ORDERED: ISOVUE-370 76% 100ML VIAL As Ordered ONE (06:31)
[2021-02-06 06:37] LABS: ANISOCYTOSIS 1+; ATYPICAL LYMPH 5 % (0-5); EOSINOPHILS 2 % (0-3); LYMPHOCYTES 48 % (16-44); METAMYELOCYTES 3 % (0-0); MONOCYTES 8 % (0-5); NEUTROPHILS 34 % (28-66); PLATELET ESTIMATE NORMAL (NORMAL); POIKILOCYTOSIS 1+; POLYCHROMASIA 1+
[2021-02-06 06:48] LABS: HCG, SERUM QUALITATIVE NEGATIVE (NEGATIVE)
[2021-02-06 06:58] LABS: ALBUMIN 4.3 GM/DL (3.2-5.2); ALT/SGPT 41 U/L (12-78); BILIRUBIN,DIRECT 0.1 MG/DL (0.0-0.2); BILIRUBIN,TOTAL 0.6 MG/DL (0.2-1.0); BLOOD UREA NITROGEN 13 MG/DL (7-18); CALCIUM LEVEL 9.6 MG/DL (8.5-10.1); CARBON DIOXIDE LEVEL 29 MEQ/L (21-32); CHLORIDE LEVEL 103 MEQ/L (98-107); CK-MB VALUE MASS < 1.0 NG/ML (<3.6); CPK CREATINE PHOSPHOKINASE 68 U/L (26-192); CREATININE FOR GFR 0.63 MG/DL (0.55-1.30); FREE T4 1.27 NG/DL (0.76-1.46); GLOMERULAR FILTRATION RATE > 60.0 (>60); GLUCOSE, FASTING 89 MG/DL (70-100); LIPASE 136 U/L (73-393); MB/CK RELATIVE INDEX 1.47 (< OR =4); POTASSIUM SERUM 4.4 MEQ/L (3.5-5.1); SODIUM LEVEL 139 MEQ/L (136-145); TOTAL PROTEIN 8.7 GM/DL (6.4-8.2); TROPONIN I < 0.02 NG/ML (< 0.10)
--- NOTE | 2021-02-06 08:11 | ECGEPIP ---
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
--- NOTE | 2021-02-06 09:07 | REP ---
INDICATION: chest pain sob. COMPARISON: 09/22/2020. TECHNIQUE: CT angiogram chest performed following the intravenous administration of 100 cc of Isovue 370. Sagittal and coronal reconstruction images are performed. FINDINGS: Lungs: Clear, no infiltrate or nodule. Mediastinum: No adenopathy. Pulmonary arteries: No evidence of pulmonary embolism. Yecenia: No adenopathy. Axilla: No adenopathy. Pleura: No effusion. Heart: Not enlarged. Thoracic aorta: No aneurysm or dissection. Upper abdominal structures: There is a small hiatal hernia. Visualized osseous structures: Unremarkable. IMPRESSION: No CT evidence of pulmonary embolism. No infiltrate seen. Small hiatal hernia. <Electronically signed by Roger Robb > 02/06/21 0903
--- NOTE | 2021-02-06 09:16 | REP ---
INDICATION: gen abd pain, vomiting COMPARISON: None. TECHNIQUE: CT Scan of the abdomen and pelvis was performed with intravenous administration of 100 cc of Isovue 370, without oral contrast. Sagittal and coronal reconstruction images are performed. Study is limited by breathing motion. FINDINGS: Lung bases: There is a small hiatal hernia. Liver: No definite mass. Gallbladder: Unremarkable. Spleen: Normal. Adrenals: Normal. Pancreas: No definite mass. Kidneys: No definite abnormality. Small and large bowel: Unremarkable. No free air or obstruction. Free fluid: None. Abdominal aorta: No aneurysm or dissection. Adenopathy: None. Appendix: Prior appendectomy. Osseous structures: Unremarkable. Pelvis: No mass. IMPRESSION: Small hernia. No acute findings. <Electronically signed by Roger Robb > 02/06/21 [id number]
[2021-02-06] MEDS ORDERED: REGL10TA6 PO (09:24)
[2021-02-06] MEDS ORDERED: PEPC1TAB5 PO (09:26)
[2021-02-06 09:52] VITALS: BP 149/84
== END 2021-02-06 09:55 | disposition home or self-care (01) ==
LOC: M ED 22:39
DX: K44.9 Diaphragmatic hernia without obstruction or gangrene (principal); R11.10 Vomiting, unspecified; R00.0 Tachycardia, unspecified; M54.5 Low back pain; F41.9 Anxiety disorder, unspecified; Z79.899 Other long term (current) drug therapy
CPT/HCPCS: 71275; 74177; 80048; 80076; 82550; 82553; 83690; 84439; 84443; 84703; 85025; 93005; 93041; 94760; 96374; 96375; 99285; J1885; J2405; Q9967

== ENCOUNTER 2022-01-26 06:35 | Emergency (ER) | payer OTHER ==
[~2022-01-26] VITALS: Ht 160 cm; Wt 81.8 kg
[~2022-01-26 06:35] MED LIST changes: +PEPC1TAB5 PO; +REGL10TA6 PO
[2022-01-26 07:19] LABS: BASO % 0.5 % (0.0-1.0); EOS # 0.1 10^3/uL (0.0-0.5); EOS % 1.1 % (0.0-3.0); HEMATOCRIT 40.8 % (36.0-47.0); HEMOGLOBIN 13.3 g/dl (12.0-15.5); LYMPH # 2.7 10^3/uL (1.5-5.0); LYMPH % 32.3 % (24.0-44.0); MEAN CORPUSCULAR HEMOGLOBIN 27.2 pg (27.0-33.0); MEAN CORPUSCULAR HGB CONC 32.6 g/dl (32.0-36.5); MEAN CORPUSCULAR VOLUME 83.4 fl (80.0-96.0); MONO % 11.5 % (2.0-8.0); NEUTROPHILS # 4.5 10^3/uL (1.5-8.5); NEUTROPHILS % 54.2 % (36.0-66.0); PLATELET COUNT, AUTOMATED 374 10^3/uL (150-450); RED BLOOD COUNT 4.89 10^6/uL (4.00-5.40); WHITE BLOOD COUNT 8.2 10^3/uL (4.0-10.0)
[2022-01-26] MEDS ORDERED: PROMETHAZINE 25MG/ML 1ML VIAL IV ONE (07:40)
[2022-01-26] MEDS ORDERED: KETOROLAC 30 MG/ML 1ML VIAL IV ONE (07:40)
[2022-01-26 07:49] LABS: ALBUMIN 3.7 GM/DL (3.2-5.2); ALT/SGPT 20 U/L (12-78); BILIRUBIN,DIRECT < 0.1 MG/DL (0.0-0.2); BILIRUBIN,TOTAL 0.5 MG/DL (0.2-1.0); BLOOD UREA NITROGEN 10 MG/DL (7-18); CALCIUM LEVEL 9.3 MG/DL (8.5-10.1); CARBON DIOXIDE LEVEL 26 MEQ/L (21-32); CHLORIDE LEVEL 106 MEQ/L (98-107); CREATININE FOR GFR 0.71 MG/DL (0.55-1.30); GLOMERULAR FILTRATION RATE > 60.0 (>60); GLUCOSE, FASTING 92 MG/DL (70-100); LIPASE 128 U/L (73-393); POTASSIUM SERUM 4.2 MEQ/L (3.5-5.1); SODIUM LEVEL 138 MEQ/L (136-145); TOTAL PROTEIN 7.4 GM/DL (6.4-8.2)
[2022-01-26 08:05] VITALS: BP 138/98
[2022-01-26] MEDS ORDERED: diphenhydrAMINE 50MG/ML VIAL (J1200) IV STA (08:09)
[2022-01-26] MEDS ORDERED: HALOPERIDOL 5MG/ML VIAL (J1630 PER 1) IV ONE (08:40)
== END 2022-01-26 11:37 | disposition home or self-care (01) ==
LOC: M ED 06:35
DX: R10.9 Unspecified abdominal pain (principal); F17.200 Nicotine dependence, unspecified, uncomplicated; F12.10 Cannabis abuse, uncomplicated; Z88.8 Allergy status to other drugs, medicaments and biological substances
CPT/HCPCS: 80053; 82248; 83690; 84702; 85025; 96374; 96375; 99284; J1200; J1630; J1885; J2550

== ENCOUNTER 2022-01-26 22:21 | Emergency (ER) | payer OTHER ==
[~2022-01-26] VITALS: Ht 160 cm; Wt 84.1 kg
[2022-01-26] MEDS ORDERED: MIDAZOLAM INJ 2MG/2ML VIAL (J2250 PER 1MG) IM ONE (22:35)
[2022-01-26] MEDS ORDERED: OLANZapine INTRAMUSCULAR 10MG VIAL IM ONE (22:35)
[2022-01-26] MEDS ORDERED: MIDAZOLAM INJ 2MG/2ML VIAL (J2250 PER 1MG) IM STA (23:13)
[2022-01-27 02:42] LABS: HEMATOCRIT 43.8 % (36.0-47.0); HEMOGLOBIN 14.4 g/dl (12.0-15.5); MEAN CORPUSCULAR HEMOGLOBIN 27.3 pg (27.0-33.0); MEAN CORPUSCULAR HGB CONC 32.9 g/dl (32.0-36.5); MEAN CORPUSCULAR VOLUME 83.1 fl (80.0-96.0); PLATELET COUNT, AUTOMATED 392 10^3/uL (150-450); RED BLOOD COUNT 5.27 10^6/uL (4.00-5.40); WHITE BLOOD COUNT 12.6 10^3/uL (4.0-10.0)
[2022-01-27] MEDS ORDERED: ONDANSETRON 4MG ORAL DISINTEGRATING TAB PO ONE (03:00)
[2022-01-27 03:26] LABS: ACETAMINOPHEN LEVEL < 2.0 UG/ML (10.0-30.0); ALBUMIN 4.4 GM/DL (3.2-5.2); ALT/SGPT 20 U/L (12-78); BILIRUBIN,DIRECT 0.2 MG/DL (0.0-0.2); BILIRUBIN,TOTAL 0.7 MG/DL (0.2-1.0); BLOOD UREA NITROGEN 11 MG/DL (7-18); CALCIUM LEVEL 9.8 MG/DL (8.5-10.1); CARBON DIOXIDE LEVEL 27 MEQ/L (21-32); CHLORIDE LEVEL 104 MEQ/L (98-107); CREATININE FOR GFR 0.77 MG/DL (0.55-1.30); ETHYL ALCOHOL (ETHANOL) < 0.003 % (0.000-0.010); GLOMERULAR FILTRATION RATE > 60.0 (>60); GLUCOSE, FASTING 97 MG/DL (70-100); POTASSIUM SERUM 3.5 MEQ/L (3.5-5.1); SALICYLATE LEVEL < 1.7 MG/DL (5.0-30.0); SODIUM LEVEL 139 MEQ/L (136-145); TOTAL PROTEIN 8.6 GM/DL (6.4-8.2)
[2022-01-27] MEDS ORDERED: PROMETHAZINE 25MG/ML 1ML VIAL IM ONE (04:40)
[2022-01-27 04:59] LABS: RSV AMPLIFICATION NEGATIVE (NEGATIVE)
[2022-01-27 05:35] LABS: AMPHETAMINES LEVEL URINE NEGATIVE (NEGATIVE); BARBITURATES URINE NEGATIVE (NEGATIVE); BENZODIAZEPINES URINE POSITIVE (NEGATIVE); CANNABINOIDS URINE POSITIVE (NEGATIVE); COCAINE METABOLITE URINE NEGATIVE (NEGATIVE); METHADONE URINE NEGATIVE (NEGATIVE); OPIATES URINE NEGATIVE (NEGATIVE); PHENCYCLIDINE URINE NEGATIVE (NEGATIVE)
[2022-01-27] MEDS ORDERED: LORazepam 2 MG/ML VIAL IM STA (07:15)
[2022-01-27] MEDS ORDERED: diphenhydrAMINE 50MG/ML VIAL (J1200) IM STA (07:16)
[2022-01-27] MEDS ORDERED: LORazepam 2 MG/ML VIAL As Ordered ONE (19:28)
[2022-01-27] MEDS ORDERED: LORazepam 2 MG TAB PO STA (20:43)
[2022-01-28 07:34] LABS: HCG, SERUM QUALITATIVE NEGATIVE (NEGATIVE)
[2022-01-28] MEDS ORDERED: HOME MED LIST COMPLETE! XX SCH (11:50)
[2022-01-28] MEDS ORDERED: ACET-910 PO (11:50)
[2022-01-28 18:27] VITALS: BP 137/83
== END 2022-01-28 19:02 | disposition home or self-care (01) ==
LOC: M ED 22:21 → EDBD 22:21 → M ED 01-28 19:02
DX: F12.188 Cannabis abuse with other cannabis-induced disorder (principal); F60.3 Borderline personality disorder; F43.0 Acute stress reaction; R45.851 Suicidal ideations; Z88.8 Allergy status to other drugs, medicaments and biological substances
CPT/HCPCS: 80048; 80076; 80143; 80307; 81000; 81015; 82077; 83605; 84443; 84703; 85027; 87086; 87631; 96372; 99285; J1200; J2060; J2250; J2550

== ENCOUNTER 2022-02-25 02:40 | Emergency (ER) | payer OTHER ==
[~2022-02-25] VITALS: Ht 160 cm; Wt 90.9 kg
[~2022-02-25 02:40] MED LIST changes: +ACET-910 PO
[2022-02-25 06:41] LABS: ALBUMIN 4.4 GM/DL (3.2-5.2); ALT/SGPT 19 U/L (12-78); BILIRUBIN,DIRECT 0.2 MG/DL (0.0-0.2); BILIRUBIN,TOTAL 0.6 MG/DL (0.2-1.0); BLOOD UREA NITROGEN 11 MG/DL (7-18); CALCIUM LEVEL 9.3 MG/DL (8.5-10.1); CARBON DIOXIDE LEVEL 24 MEQ/L (21-32); CHLORIDE LEVEL 107 MEQ/L (98-107); CREATININE FOR GFR 0.68 MG/DL (0.55-1.30); GLOMERULAR FILTRATION RATE > 60.0 (>60); GLUCOSE, FASTING 89 MG/DL (70-100); HCG, SERUM QUANTITATIVE < 1.0 MIU/ML; LIPASE 122 U/L (73-393); POTASSIUM SERUM 3.7 MEQ/L (3.5-5.1); SODIUM LEVEL 138 MEQ/L (136-145); TOTAL PROTEIN 8.3 GM/DL (6.4-8.2)
[2022-02-25] MEDS ORDERED: KETOROLAC 30 MG/ML 1ML VIAL IV ONE (07:55)
[2022-02-25] MEDS ORDERED: NS 1,000 ML IV ONE (07:55)
[2022-02-25 09:10] LABS: BASO % 0.4 % (0.0-1.0); EOS % 0.3 % (0.0-3.0); HEMATOCRIT 38.6 % (36.0-47.0); LYMPH % 28.4 % (24.0-44.0); MEAN CORPUSCULAR HEMOGLOBIN 27.7 pg (27.0-33.0); MEAN CORPUSCULAR HGB CONC 33.7 g/dl (32.0-36.5); MEAN CORPUSCULAR VOLUME 82.3 fl (80.0-96.0); MONO # 1.3 10^3/uL (0.0-0.8); MONO % 12.3 % (2.0-8.0); NEUTROPHILS # 6.1 10^3/uL (1.5-8.5); NEUTROPHILS % 58.4 % (36.0-66.0); PLATELET COUNT, AUTOMATED 365 10^3/uL (150-450); RED BLOOD COUNT 4.69 10^6/uL (4.00-5.40); WHITE BLOOD COUNT 10.5 10^3/uL (4.0-10.0)
[2022-02-25] MEDS ORDERED: ONDANSETRON 4MG 2ML VIAL IV ONE (09:10)
[2022-02-25] MEDS ORDERED: MORPHINE 4 MG/ML 1ML VIAL/SYRINGE IV ONE (09:10)
[2022-02-25] MEDS ORDERED: ONDA4TAB6 PO (11:12)
[2022-02-25 11:31] VITALS: BP 149/79
== END 2022-02-25 12:38 | disposition home or self-care (01) ==
LOC: EDBD 02:40 → M ED 02:40
DX: R10.9 Unspecified abdominal pain (principal); R11.2 Nausea with vomiting, unspecified; R00.0 Tachycardia, unspecified; F12.10 Cannabis abuse, uncomplicated; M54.50 Low back pain, unspecified; Z88.8 Allergy status to other drugs, medicaments and biological substances; Z79.899 Other long term (current) drug therapy
CPT/HCPCS: 76856; 80048; 80076; 83690; 84702; 85025; 86850; 86900; 86901; 93005; 93976; 96361; 96374; 96375; 99284; J1885; J2270; J2405

== ENCOUNTER 2024-06-19 05:36 | Emergency (ER) | payer OTHER ==
[~2024-06-19] VITALS: Ht 160 cm; Wt 103.8 kg
[~2024-06-19 05:36] MED LIST changes: +LIDO15SO8 SSP; -LIDO2SOL17 SSP; +ONDA-282 PO
[2024-06-19] MEDS ORDERED: ISOVUE-370 76% 100ML VIAL As Ordered ONE (06:08)
[2024-06-19 07:10] LABS: BASO % 0.3 % (0.0-1.0); EOS # 0.1 10^3/uL (0.0-0.5); EOS % 0.9 % (0.0-3.0); HEMATOCRIT 39.2 % (36.0-47.0); HEMOGLOBIN 13.1 g/dl (12.0-15.5); LYMPH # 1.7 10^3/uL (1.5-5.0); LYMPH % 26.3 % (24.0-44.0); MEAN CORPUSCULAR HEMOGLOBIN 27.1 pg (27.0-33.0); MEAN CORPUSCULAR HGB CONC 33.4 g/dl (32.0-36.5); MONO # 0.7 10^3/uL (0.0-0.8); MONO % 10.7 % (2.0-8.0); NEUTROPHILS # 4.1 10^3/uL (1.5-8.5); NEUTROPHILS % 61.5 % (36.0-66.0); PLATELET COUNT, AUTOMATED 327 10^3/uL (150-450); RED BLOOD COUNT 4.84 10^6/uL (4.00-5.40); WHITE BLOOD COUNT 6.6 10^3/uL (4.0-10.0)
[2024-06-19] MEDS: ONDANSETRON 4MG 2ML VIAL IV ONE (07:21)
[2024-06-19] MEDS: MORPHINE 2 MG/ML 1ML VIAL IV ONE (07:23)
[2024-06-19] MEDS ORDERED: NIFE1TAB52 (07:30)
[2024-06-19] MEDS ORDERED: ACET-683 (07:30)
[2024-06-19 07:33] LABS: ALBUMIN 3.7 G/DL (3.2-5.2); ALKALINE PHOSPHATASE 59 U/L (35-104); ALT/SGPT 15 U/L (7.0-40); AST/SGOT 35 U/L (<34); BILIRUBIN,TOTAL 0.5 MG/DL (0.3-1.2); BLOOD UREA NITROGEN 8 MG/DL (9-23); CALCIUM LEVEL 8.6 MG/DL (8.5-10.1); CARBON DIOXIDE LEVEL 22 MMOL/L (20-31); CHLORIDE LEVEL 107 MMOL/L (98-107); CREATININE FOR GFR 0.47 MG/DL (0.55-1.30); GLOMERULAR FILTRATION RATE > 60.0 (>60); GLUCOSE, FASTING 94 MG/DL (60-100); LIPASE 29 U/L (12-53); SODIUM LEVEL 137 MMOL/L (136-145); TOTAL PROTEIN 7.4 G/DL (5.7-8.2)
[2024-06-19 09:11] VITALS: BP 160/90; TEMP 98.8; O2SAT 99
== END 2024-06-19 09:13 | disposition home or self-care (01) ==
LOC: EDBD 05:36 → M ED 05:36
DX: S20.20XA Contusion of thorax, unspecified, initial encounter (principal); S16.1XXA Strain of muscle, fascia and tendon at neck level, initial encounter; S40.012A Contusion of left shoulder, initial encounter; V48.0XXA Car driver injured in noncollision transport accident in nontraffic accident, initial encounter; I10 Essential (primary) hypertension; F41.9 Anxiety disorder, unspecified; F32.A Depression, unspecified; M54.50 Low back pain, unspecified; Y92.410 Unspecified street and highway as the place of occurrence of the external cause; Y93.89 Activity, other specified; Y99.9 Unspecified external cause status; Z79.1 Long term (current) use of non-steroidal anti-inflammatories (NSAID); Z79.899 Other long term (current) drug therapy
CPT/HCPCS: 70450; 70486; 71260; 72125; 73030; 74177; 80053; 83690; 85025; 86850; 86900; 86901; 93005; 96374; 96375; 99284; J2405; Q9967